=== PATIENT | female | born 1960 | race African-American/Black ===

== ENCOUNTER 2017-08-24 07:39 | Day surgery (SDC) | payer OTHER ==
[2017-08-24] MEDS ORDERED: D5 LR 1000 ML 1,000 ML IV ONE (07:50)
[2017-08-24] MEDS ORDERED: DIPRIVAN VIAL 20 ML ONE (09:27)
[2017-08-24 10:25] VITALS: BP 120/60
== END 2017-08-24 10:30 | disposition home or self-care (01) ==
LOC: SURG1 07:39
PROVIDERS: ATTEND Internal Medicine Gastroenterology
PROC: 0DBL8ZX Excision of Transverse Colon, Via Natural or Artificial Opening Endoscopic, Diagnostic (ICD-10-PCS; principal; 2017-08-24 09:00)
PROC: 0DJD8ZZ Inspection of Lower Intestinal Tract, Via Natural or Artificial Opening Endoscopic (ICD-10-PCS; principal; 2017-08-24 09:00)
DX: Z12.11 Encounter for screening for malignant neoplasm of colon (principal); K92.2 Gastrointestinal hemorrhage, unspecified; Z86.010 Personal history of colon polyps; K63.5 Polyp of colon; K64.0 First degree hemorrhoids; D12.3 Benign neoplasm of transverse colon
CPT/HCPCS: A4217; J3490; J7120

== ENCOUNTER 2018-04-09 11:24 | Inpatient (IN) ==
[2018-04-09 14:59] LABS: BASOPHILS # (AUTO) 0.1 X10^3/uL (0.0-0.1); BASOPHILS % (AUTO) 0.9 % (0.2-1.0); EOSINOPHILS # (AUTO) 0.1 x10^3/uL (0.0-0.2); EOSINOPHILS % (AUTO) 1.3 % (0.9-2.9); HEMATOCRIT 43.9 % (36.0-47.0); HEMOGLOBIN 13.7 g/dL (12.0-16.0); LYMPHOCYTES # (AUTO) 2.1 X10^3/uL (1.3-2.9); LYMPHOCYTES % (AUTO) 25.2 % (21.0-51.0); MEAN CORPUSCULAR HEMOGLOBIN 24.7 pg (27.0-34.0); MEAN CORPUSCULAR HGB CONC 31.3 g/dL (33.0-35.0); MEAN PLATELET VOLUME 8.6 fL (7.4-11.0); MONOCYTES # (AUTO) 0.7 x10^3/uL (0.3-0.8); MONOCYTES % (AUTO) 8.8 % (0.0-13.0); NEUTROPHILS # (AUTO) 5.4 x10^3/uL (2.2-4.8); NEUTROPHILS % (AUTO) 63.8 % (42.0-75.0); PLATELET COUNT 228 X10^3/uL (150.0-450.0); RED BLOOD COUNT 5.55 X10^6/uL (3.5-5.4); RED CELL DISTRIBUTION WIDTH 16.5 % (11.6-16.5); WHITE BLOOD COUNT 8.4 X10^3/uL (3.6-10.0)
[2018-04-09 15:01] VITALS: BMI 43.9
[2018-04-09 15:07] LABS: HYPOCHROMASIA SLIGHT; PLATELET MORPHOLOGY COMMENT NORMAL (NORMAL)
--- NOTE | 2018-04-09 15:10 | CT ---
HISTORY: Shortness of breath and weakness. Study: CT brain without contrast Comparison: None available. Technique: Multiple axial images of the brain were obtained from the skull base to the vertex without administra tion of IV contrast. Dose reduction techniques including Automated Exposure Control (AEC) and adjust ment of mA and kV were utilized. Findings: Age-related cortical atrophy and chronic small vessel ischemic changes. Large area of encephalomalaci a within the right MAXX territory likely representing remote infarction. No acute intraparenchymal hem orrhage or mass can be identified. No extra-axial fluid collections are seen. No alteration in the attenuation of the brain parenchyma can be identified to suggest acute or subacute ischemic change. The ventricular system is symmetric and nondilated. The extracranial structures are grossly unremark able. IMPRESSION: No acute intracranial pathology. If clinically concerned for acute ischemia/infarction MR I of the brain is more sensitive. Reported By:
--- NOTE | 2018-04-09 15:12 | RAD ---
HISTORY: Weakness, shortness of breath Study: Chest AP portable Comparison: None Findings: The heart is enlarged. No congestive heart failure is noted. No acute alveolar infiltrates or pleural effusions are identified. The bony thorax is unremarkable. IMPRESSION: Moderate cardiomegaly without congestive heart failure Lungs clear Reported By:
[2018-04-09] MEDS ORDERED: XYLOCAINE 2 % (PLAIN) ONE (15:26)
[2018-04-09] MEDS: NS 1000 ML 1,000 ML IV SCH (16:00)
--- NOTE | 2018-04-09 16:32 | RAD ---
Exam: Portable chest History: 58-year-old female. Evaluate for possible pneumothorax following attempted central line plac ement. Comparison: Previous chest radiograph performed earlier on the same date Findings: Mild cardiomegaly is seen. No significant vascular congestion. No definite pneumothorax is seen on either side. Mild compressive atelectasis is noted at the right base. Right hemidiaphragm rem ains elevated. Impression: No pneumothorax identified following attempted central line placement. Reported By:
[2018-04-09 16:41] LABS: ALANINE AMINOTRANSFERASE 35 Units/L (12-78); ALBUMIN 2.8 g/dL (3.4-5.0); ALKALINE PHOSPHATASE 84 Units/L (46-116); ASPARTATE AMINO TRANSFERASE 120 Units/L (15-37); BLOOD UREA NITROGEN 28 mg/dL (7-18); CALCIUM 9.7 mg/dL (8.5-10.1); CARBON DIOXIDE 27.6 mmol/L (21-32); CHLORIDE 106 mmol/L (98-107); COR CA(FOR HYPOALB) 10.7 mg/dL (8.5-10.1); CREATININE 1.85 mg/dL (0.55-1.02); SODIUM 144 mmol/L (136-145); TOTAL PROTEIN 7.7 g/dL (6.4-8.2); eGFR NON BLACK RACES 30 (>60)
[2018-04-09] MEDS ORDERED: POTASSIUM CHL 60 MEQ/NS 0.45% 500 ML IV PRN (18:26)
[2018-04-09] MEDS ORDERED: K-RIDER 10 MEQ/NS 100 ML 10 MEQ/100 ML BAG IV PRN (18:26)
[2018-04-09] MEDS ORDERED: POTASSIUM CHLORIDE LIQ 20 MEQ UDC PO PRN (18:26)
[2018-04-09] MEDS ORDERED: POTASSIUM CHL 40 MEQ/NS 0.45% 500 ML IV PRN (18:26)
[2018-04-09] MEDS ORDERED: K-LYTE EFFERVESCENT PO PRN (18:26)
[2018-04-09] MEDS ORDERED: NS 500 ML IV 500 ML IV ONE (18:37)
[2018-04-09 19:02] LABS: BILIRUBIN,URINE NEGATIVE (NEGATIVE); BLOOD/HEMOGLOBIN,URINE 4+ (NEGATIVE); GLUCOSE, URINE NEGATIVE (NEGATIVE); KETONES,URINE NEGATIVE (NEGATIVE); LEUKOCYTE ESTERASE ,URINE NEGATIVE (NEGATIVE); NITRITES,URINE NEGATIVE (NEGATIVE); PROTEIN,URINE 2+ (NEGATIVE); UROBILINOGEN,URINE 1+ (NORMAL)
[2018-04-09 19:07] LABS: APPEARANCE,URINE CLEAR (CLEAR); COLOR,URINE YELLOW (YELLOW)
[2018-04-09 19:34] LABS: AMORPHOUS SEDIMENT,UR 1+ /HPF (NEGATIVE); BACTERIA,URINE NEGATIVE /HPF (NEGATIVE); RBC,URINE 0-2 /HPF (NONE SEEN); SQUAMOUS EPITHELIAL CELL,UR FEW /HPF (NEGATIVE)
[2018-04-09] MEDS: SNACK - Diabetic Appropriate PO SCH (22:59)
[2018-04-10] MEDS: NS 1000 ML 1,000 ML IV SCH (05:00)
[2018-04-10 06:09] LABS: BASOPHILS # (AUTO) 0.1 X10^3/uL (0.0-0.1); BASOPHILS % (AUTO) 0.7 % (0.2-1.0); EOSINOPHILS # (AUTO) 0.2 x10^3/uL (0.0-0.2); EOSINOPHILS % (AUTO) 2.4 % (0.9-2.9); HEMATOCRIT 31.1 % (36.0-47.0); HEMOGLOBIN 9.8 g/dL (12.0-16.0); LYMPHOCYTES # (AUTO) 2.4 X10^3/uL (1.3-2.9); LYMPHOCYTES % (AUTO) 30.9 % (21.0-51.0); MEAN CORPUSCULAR HEMOGLOBIN 24.6 pg (27.0-34.0); MEAN CORPUSCULAR HGB CONC 31.5 g/dL (33.0-35.0); MEAN CORPUSCULAR VOLUME 78.1 fL (80.0-100.0); MEAN PLATELET VOLUME 8.3 fL (7.4-11.0); MONOCYTES # (AUTO) 0.8 x10^3/uL (0.3-0.8); MONOCYTES % (AUTO) 10.8 % (0.0-13.0); NEUTROPHILS # (AUTO) 4.3 x10^3/uL (2.2-4.8); NEUTROPHILS % (AUTO) 55.2 % (42.0-75.0); PLATELET COUNT 217 X10^3/uL (150.0-450.0); RED BLOOD COUNT 3.99 X10^6/uL (3.5-5.4); RED CELL DISTRIBUTION WIDTH 15.8 % (11.6-16.5); WHITE BLOOD COUNT 7.8 X10^3/uL (3.6-10.0)
[2018-04-10] MEDS ORDERED: D50W ABBOJECT SYR ONE (06:13)
[2018-04-10] MEDS: D50W ABBOJECT SYR IV PRN ×2 (06:15→11:40)
[2018-04-10 06:29] LABS: ALANINE AMINOTRANSFERASE 30 Units/L (12-78); ALBUMIN 2.4 g/dL (3.4-5.0); ALKALINE PHOSPHATASE 72 Units/L (46-116); ASPARTATE AMINO TRANSFERASE 92 Units/L (15-37); BLOOD UREA NITROGEN 27 mg/dL (7-18); CALCIUM 9.2 mg/dL (8.5-10.1); CARBON DIOXIDE 26.9 mmol/L (21-32); CHLORIDE 108 mmol/L (98-107); COR CA(FOR HYPOALB) 10.5 mg/dL (8.5-10.1); CREATININE 1.78 mg/dL (0.55-1.02); SODIUM 144 mmol/L (136-145); TOTAL PROTEIN 6.9 g/dL (6.4-8.2); eGFR NON BLACK RACES 31 (>60)
[2018-04-10 06:54] LABS: HYPOCHROMASIA SLIGHT; PLATELET MORPHOLOGY COMMENT NORMAL (NORMAL)
[2018-04-10] MEDS ORDERED: DIPRIVAN VIAL ONE (09:32)
[2018-04-10] MEDS ORDERED: NORMODYNE INJ 20 MG VIAL IVP PRN (09:52)
--- NOTE | 2018-04-10 11:20 | DR.UPDATE ---
H&P Update History and Physical Update: WAS SEEN IN THE OFFICE TODAY. PATIENT TO BE ADMITTED TO THE HOSPITAL FOR FURTHER TREATMENT AND EVALUATION OF A POSSIBLE CVA. A H&P WAS COMPLETED PRIOR TO ADMISSION. PATIENT HAS BEEN SEEN AND EXAMINED WITH NO CHANGES NOTED TO H&P. Changes noted: NO Yes with the following:
[2018-04-10] MEDS ORDERED: D5W 1000 ML IV 1,000 ML IV SCH (12:00)
[2018-04-10] MEDS: D5W 1000 ML IV 1,000 ML IV SCH (14:01)
--- NOTE | 2018-04-10 18:23 | MRI ---
HISTORY: Weakness. Altered mental status. Slurred speech. Suspected right-sided CVA. Study: MR brain without contrast Comparison: Head CT dated 04/09/2018. Technique: Multiplanar multi-sequence MRI of the brain was obtained without contrast utilizing a [facility] protocol. Findings: There is restricted diffusion within the mesial aspect of the right frontal lobe high conve xity with associated dropout of signal on ADC map and increased T2/FLAIR signal compatible with an ac [place] ischemic event. There is loss of sulcation with mass effect along the superior aspect of the righ t lateral ventricle which is slightly smaller than the left. There is no midline shift or evidence of herniation. There is no associated hemorrhage. Scattered and confluent areas of increased T2/FLAIR s ignal are noted throughout the periventricular, deep and subcortical white matter regions bilaterally , as well as, involving the brainstem. No extra-axial fluid collections are observed. IMPRESSION: Acute ischemic event involving the MAXX territory on the right. There is mass effect on the underlying right lateral ventricle without midline shift or herniation. There is no associated hemorrhage. Chronic appearing white matter changes likely reflecting sequelae of small vessel disease. Reported By:
[2018-04-10] MEDS: SNACK - Diabetic Appropriate PO SCH (21:36)
[2018-04-11 05:46] LABS: BASOPHILS # (AUTO) 0.1 X10^3/uL (0.0-0.1); BASOPHILS % (AUTO) 0.9 % (0.2-1.0); EOSINOPHILS # (AUTO) 0.3 x10^3/uL (0.0-0.2); EOSINOPHILS % (AUTO) 3.9 % (0.9-2.9); HEMATOCRIT 34.1 % (36.0-47.0); HEMOGLOBIN 10.7 g/dL (12.0-16.0); LYMPHOCYTES # (AUTO) 2.2 X10^3/uL (1.3-2.9); LYMPHOCYTES % (AUTO) 28.2 % (21.0-51.0); MEAN CORPUSCULAR HEMOGLOBIN 24.5 pg (27.0-34.0); MEAN CORPUSCULAR HGB CONC 31.5 g/dL (33.0-35.0); MEAN CORPUSCULAR VOLUME 77.7 fL (80.0-100.0); MEAN PLATELET VOLUME 8.2 fL (7.4-11.0); MONOCYTES # (AUTO) 0.9 x10^3/uL (0.3-0.8); MONOCYTES % (AUTO) 11.6 % (0.0-13.0); NEUTROPHILS # (AUTO) 4.3 x10^3/uL (2.2-4.8); NEUTROPHILS % (AUTO) 55.4 % (42.0-75.0); PLATELET COUNT 189 X10^3/uL (150.0-450.0); RED BLOOD COUNT 4.39 X10^6/uL (3.5-5.4); RED CELL DISTRIBUTION WIDTH 15.9 % (11.6-16.5); WHITE BLOOD COUNT 7.8 X10^3/uL (3.6-10.0)
[2018-04-11 05:52] LABS: ALANINE AMINOTRANSFERASE 28 Units/L (12-78); ALBUMIN 2.4 g/dL (3.4-5.0); ALKALINE PHOSPHATASE 74 Units/L (46-116); ASPARTATE AMINO TRANSFERASE 65 Units/L (15-37); BLOOD UREA NITROGEN 20 mg/dL (7-18); CALCIUM 9.5 mg/dL (8.5-10.1); CARBON DIOXIDE 27.7 mmol/L (21-32); CHLORIDE 104 mmol/L (98-107); COR CA(FOR HYPOALB) 10.8 mg/dL (8.5-10.1); SODIUM 139 mmol/L (136-145); TOTAL PROTEIN 7.2 g/dL (6.4-8.2); eGFR NON BLACK RACES 41 (>60)
[2018-04-11 07:15] LABS: PLATELET MORPHOLOGY COMMENT NORMAL (NORMAL)
[2018-04-11] MEDS ORDERED: PATIENT'S HOME MEDICATION (Ferrous Sulfate [Ferrous Sulfate] 325 MG) PO SCH (09:45)
[2018-04-11] MEDS: ALDACTONE TAB 25 MG PO SCH (12:42)
[2018-04-11] MEDS: PLAVIX PO SCH (12:43)
[2018-04-11] MEDS: CATAPRES-TTS-2 TD SCH (12:43)
[2018-04-11] MEDS: HYDROCHLOROTHIAZIDE 25 MG TAB PO SCH (12:43)
[2018-04-11] MEDS: HEMOCYTE-PLUS PO SCH ×2 (12:43→20:52)
[2018-04-11] MEDS: D5W 1000 ML IV 1,000 ML IV SCH ×2 (12:44→20:52)
[2018-04-11] MEDS: COREG TAB 25 MG PO SCH ×2 (12:47→20:52)
--- NOTE | 2018-04-11 16:18 | VAS ---
HISTORY: Concern for carotid artery stenosis. Technique: Multiple macedo scale and color flow Doppler images of the right and left carotid arterial s ystem were obtained. The vertebral arterial system was evaluated as well. Findings: Nonocclusive color flow Doppler is seen throughout the right and left carotid arterial system. No hem odynamically significant carotid arterial stenosis is seen based on velocity criteria. There is mild bilateral carotid intimal thickening but without evidence for high-grade stenosis (>70%) or occlusion of the carotid arteries. The right and left vertebral artery demonstrate antegrade flow. IMPRESSION: Mild bilateral carotid intimal thickening but without evidence for high-grade stenosis or occlusion o f the carotid arteries, based on Doppler velocity criteria. Appropriate, antegrade, vertebral arterial flow. Peak right ICA velocity: 87 centimeter/seconds. Peak right CCA velocity: 58 centimeter/second. Peak left ICA velocity: 55 centimeter/seconds. Peak left CCA velocity: 53 centimeters/second. Right ICA to CCA ratio: 1.5. Left ICA to CCA ratio: 1.0. Reported By:
--- NOTE | 2018-04-11 16:38 | PCM.PROG ---
Progress Note - Progress Note for Day of Date: 04/10/18 - Subjective Subjective: WAS ADMITTED FOR A SUSPECTED RIGHT SIDED CVA. TODAY, SHE IS ALERT, LYING IN BED ON MORNING ROUNDS. SHE IS NOTED WITH DELAYED, SLURRED SPEECH AND HAS DIFFICULTY ANSWERING QUESTIONS. ON EXAMINATION, HEART IS REGULAR IN RATE AND RHYTHM. BILATERAL LUNGS ARE CLEAR TO AUSCULTATION. ABDOMEN IS ROUND , SOFT, AND NON-TENDER WITH NORMAL BOWEL SOUNDS NOTED IN ALL QUADRANTS. SHE IS NOTED WITH SEVERE LEFT SIDED WEAKNESS. HER VITALS TODAY ARE 97.4-59-18-96%-153/ 81. LABS WERE OBTAINED. ABNORMAL LAB VALUES INCLUDE THE FOLLOWING: HGB 9.8, HCT 31.1, CHLORIDE 108, BUN 27, CREATININE 1.78, AST 92, ALBUMIN 2.4. THROUGHOUT THE NIGHT, HER BLOOD GLUCOSE HAS BEEN IN THE 60s-70s. SHE IS DIABETIC AND NPO AT THIS TIME. ON ARRIVAL, A BRAIN CT WAS OBTAINED WHICH REVEALED Age-related cortical atrophy and chronic small vessel ischemic changes. Large area of encephalomalacia within the right MAXX territory likely representing remote infarction, otherwise, no acute intracranial pathology. TODAY, WE WILL OBTAIN A BRAIN MRI. WE WILL ALSO START HER ON THE LABETALOL PROTOCOL FOR BLOOD PRESSURE CONTROL AND D5W. OTHERWISE, WE WILL FOLLOW UP WITH AM LABS AND CONTINUE TO MONITOR PATIENT. - Past Medical Family Social History Past Med/Fam/Surg Hx: No changes since H&P Allergies: Allergies No Known Drug Allergies Allergy (Verified 08/24/17 07:55) - Review of Systems ROS: No change since H&P - Vital Signs and I&O's Vital Signs: Temperature 99.6 F Pulse Rate [Bilateral Brachial 86 ] Respiratory Rate 18 Blood Pressure [Left Arm] 167/98 Blood Pressure 120/60 O2 Sat by Pulse Oximetry 99 Intake and Output: Intake & Output 04/09/18 04/10/18 04/11/18 04/12/18 11:59 11:59 11:59 11:59 Intake Total 740 / 740 910 / 910 Output Total 550 / 550 1525 / 1525 Balance 190 / 190 -615 / -615 - Physical Exam Oriented: Unable to test Eyes: Normal Ear: Normal Nose: Normal Throat: Normal Respiratory: Normal Cardiovascular: Normal. negative: S3, S4, Murmur : Normal Auscultation: Bowel Sounds: Normal Palpation: Normal Tenderness: Normal Skin: Normal Musculoskeletal: Left, Arm, Leg, Motor Deficit, Sensory Deficit Psychiatric: Normal Affect: Normal Speech Pattern: Delayed, Slurred - Laboratory and Diagnostics Result Diagrams: 04/11/18 05:16 04/11/18 05:16 Labs: Laboratory WBC 7.8 X10^3/uL (3.6-10.0) 04/11/18 05:16 RBC 4.39 X10^6/uL (3.5-5.4) 04/11/18 05:16 Hgb 10.7 g/dL (12.0-16.0) L 04/11/18 05:16 Hct 34.1 % (36.0-47.0) L 04/11/18 05:16 MCV 77.7 fL (80.0-100.0) L 04/11/18 05:16 MCH 24.5 pg (27.0-34.0) L 04/11/18 05:16 MCHC 31.5 g/dL (33.0-35.0) L 04/11/18 05:16 RDW 15.9 % (11.6-16.5) 04/11/18 05:16 Plt Count 189 X10^3/uL (150.0-450.0) 04/11/18 05:16 Plt Count Comment Adequate (ADEQUATE) 04/11/18 05:16 MPV 8.2 fL (7.4-11.0) 04/11/18 05:16 Neut % (Auto) 55.4 % (42.0-75.0) 04/11/18 05:16 Lymph % (Auto) 28.2 % (21.0-51.0) 04/11/18 05:16 [place] % (Auto) 11.6 % (0.0-13.0) 04/11/18 05:16 Eos % (Auto) 3.9 % (0.9-2.9) H 04/11/18 05:16 Baso % (Auto) 0.9 % (0.2-1.0) 04/11/18 05:16 Neut # (Auto) 4.3 x10^3/uL (2.2-4.8) 04/11/18 05:16 Lymph # (Auto) 2.2 X10^3/uL (1.3-2.9) 04/11/18 05:16 [place] # (Auto) 0.9 x10^3/uL (0.3-0.8) H 04/11/18 05:16 Eos # (Auto) 0.3 x10^3/uL (0.0-0.2) H 04/11/18 05:16 Baso # (Auto) 0.1 X10^3/uL (0.0-0.1) 04/11/18 05:16 Absolute Nucleated RBC 0.0 /100WBC 04/11/18 05:16 Plt Morphology Comment Normal (NORMAL) 04/11/18 05:16 RBC Morphology Normal (NORMAL) 04/11/18 05:16 Hypochromasia Slight A 04/10/18 05:37 Sodium 139 mmol/L (136-145) 04/11/18 05:16 Corrected Sodium TNP 04/11/18 05:16 Potassium 3.5 mmol/L (3.5-5.1) 04/11/18 05:16 Chloride 104 mmol/L (98-107) 04/11/18 05:16 Carbon Dioxide 27.7 mmol/L (21-32) 04/11/18 05:16 BUN 20 mg/dL (7-18) H 04/11/18 05:16 Creatinine 1.40 mg/dL (0.55-1.02) H 04/11/18 05:16 Est GFR (MDRD) Af Amer 49 (>60) L 04/11/18 05:16 Est GFR (MDRD) Non-Af 41 (>60) L 04/11/18 05:16 Glucose 108 mg/dL (65-99) H 04/11/18 05:16 POC Glucose (mg/dL) 135 mg/dL (65-99) H 04/11/18 16:19 Calcium 9.5 mg/dL (8.5-10.1) 04/11/18 05:16 Corrected Calcium 10.8 mg/dL (8.5-10.1) H 04/11/18 05:16 Magnesium 1.9 mg/dL (1.7-2.9) 04/09/18 14:31 Total Bilirubin 0.30 mg/dL (0.2-1.0) 04/11/18 05:16 AST 65 Units/L (15-37) H 04/11/18 05:16 ALT 28 Units/L (12-78) 04/11/18 05:16 Alkaline Phosphatase 74 Units/L (46-116) 04/11/18 05:16 Total Protein 7.2 g/dL (6.4-8.2) 04/11/18 05:16 Albumin 2.4 g/dL (3.4-5.0) L 04/11/18 05:16 Globulin 4.8 g/dL (2.5-4.5) H 04/11/18 05:16 Albumin/Globulin Ratio 0.5 Ratio (1.1-2.1) L 04/11/18 05:16 Specimen Type Clean catch urine 04/09/18 18:17 Urine Color Yellow (YELLOW) 04/09/18 18:17 Urine Appearance Clear (CLEAR) 04/09/18 18:17 Urine pH 5.0 (5.0 - 8.0) 04/09/18 18:17 Ur Specific [place] 1.020 (1.000-1.030) 04/09/18 18:17 Urine Protein 2+ (NEGATIVE) 04/09/18 18:17 Urine Glucose (UA) Negative (NEGATIVE) 04/09/18 18:17 Urine Ketones Negative (NEGATIVE) 04/09/18 18:17 Urine Occult Blood 4+ (NEGATIVE) 04/09/18 18:17 Urine Nitrite Negative (NEGATIVE) 04/09/18 18:17 Urine Bilirubin Negative (NEGATIVE) 04/09/18 18:17 Urine Urobilinogen 1+ (NORMAL) 04/09/18 18:17 Ur Leukocyte Esterase Negative (NEGATIVE) 04/09/18 18:17 Urine RBC 0-2 /HPF (NONE SEEN) 04/09/18 18:17 Urine WBC 0-2 /HPF (NONE SEEN) 04/09/18 18:17 Ur Squamous Epith Cells Few /HPF (NEGATIVE) 04/09/18 18:17 Amorphous Sediment 1+ /HPF (NEGATIVE) 04/09/18 18:17 Urine Bacteria Negative /HPF (NEGATIVE) 04/09/18 18:17 Ur Culture Indicated? No/not indicated 04/09/18 18:17 - Plan (1) Suspected cerebrovascular accident (CVA) Status: Acute Plan: BRAIN MRI TODAY, SPEECH THERAPY CONSULT, CONTINUE TO MONITOR (2) Left-sided weakness Status: Acute Plan: OBTAIN BRAIN MRI, CONTINUE TO MONITOR
--- NOTE | 2018-04-11 17:12 | PCM.PROG ---
Progress Note - Progress Note for Day of Date: 04/11/18 - Subjective Subjective: WAS ADMITTED FOR A SUSPECTED RIGHT SIDED CVA. TODAY, SHE IS ALERT, LYING IN BED ON MORNING ROUNDS. SHE CONTINUES WITH DELAYED, SLURRED SPEECH. ON EXAMINATION, HEART IS REGULAR IN RATE AND RHYTHM. BILATERAL LUNGS ARE CLEAR TO AUSCULTATION. ABDOMEN IS ROUND, SOFT, AND NON-TENDER WITH NORMAL BOWEL SOUNDS NOTED IN ALL QUADRANTS. SHE IS NOTED WITH SEVERE LEFT SIDED WEAKNESS. HER VITALS TODAY ARE 97.3-80-21-100%-171/89. LABS WERE OBTAINED. ABNORMAL LAB VALUES INCLUDE THE FOLLOWING: HGB 10.7, HCT 34.1, BUN 20, CREATININE 1.40, GLUCOSE 108, AST 65, ALBUMIN 2.4. ON ARRIVAL, A BRAIN MRI WAS OBTAINED YESTERDAY AND REVEALED: Acute ischemic event involving the MAXX territory on the right. There is mass effect on the underlying right lateral ventricle without midline shift or herniation. There is no associated hemorrhage. Chronic appearing white matter changes likely reflecting sequelae of small vessel disease. PATIENT WILL REQUIRE ADDITIONAL PHYSICAL THERAPY AFTER DISCHARGE FROM THE HOSPITAL. WE WILL DISCUSS OPTIONS WITH CASE MANAGEMENT. SPEECH THERAPY REPORTED THAT PATIENT WAS SAFE TO EAT A PUREED DIET WITH NECTAR THICKENED LIQUIDS WELL TAKE HER PILLS CRUSHED. TODAY, WE WILL OBTAIN A CAROTID DOPPLER, EKG, AND ECHOCARDIOGRAM. WE WILL RESTART HER PLAVIX AND OTHER HOME MEDICATIONS. WE WILL ALSO START A CLONIDINE 0.2MG TD PATCH. OTHERWISE, WE WILL FOLLOW UP WITH AM LABS AND CONTINUE TO MONITOR PATIENT. - Past Medical Family Social History Past Med/Fam/Surg Hx: No changes since H&P Allergies: Allergies No Known Drug Allergies Allergy (Verified 08/24/17 07:55) - Review of Systems ROS: No change since H&P - Vital Signs and I&O's Vital Signs: Temperature 99.6 F Pulse Rate [Bilateral Brachial 75 ] Respiratory Rate 18 Blood Pressure [Left Arm] 153/84 Blood Pressure 120/60 O2 Sat by Pulse Oximetry 100 Intake and Output: Intake & Output 04/09/18 04/10/18 04/11/18 04/12/18 11:59 11:59 11:59 11:59 Intake Total 740 / 740 910 / 910 330 / 330 Output Total 550 / 550 1525 / 1525 525 / 525 Balance 190 / 190 -615 / -615 -195 / -195 - Physical Exam Oriented: Unable to test Eyes: Normal Ear: Normal Nose: Normal Throat: Normal Respiratory: Normal Cardiovascular: Normal. negative: S3, S4, Murmur : Normal Auscultation: Bowel Sounds: Normal Palpation: Normal Tenderness: Normal Skin: Normal Musculoskeletal: Left, Arm, Leg, Motor Deficit, Sensory Deficit Psychiatric: Normal Affect: Normal Speech Pattern: Delayed, Slurred - Laboratory and Diagnostics Result Diagrams: 04/11/18 05:16 04/11/18 05:16 Labs: Laboratory WBC 7.8 X10^3/uL (3.6-10.0) 04/11/18 05:16 RBC 4.39 X10^6/uL (3.5-5.4) 04/11/18 05:16 Hgb 10.7 g/dL (12.0-16.0) L 04/11/18 05:16 Hct 34.1 % (36.0-47.0) L 04/11/18 05:16 MCV 77.7 fL (80.0-100.0) L 04/11/18 05:16 MCH 24.5 pg (27.0-34.0) L 04/11/18 05:16 MCHC 31.5 g/dL (33.0-35.0) L 04/11/18 05:16 RDW 15.9 % (11.6-16.5) 04/11/18 05:16 Plt Count 189 X10^3/uL (150.0-450.0) 04/11/18 05:16 Plt Count Comment Adequate (ADEQUATE) 04/11/18 05:16 MPV 8.2 fL (7.4-11.0) 04/11/18 05:16 Neut % (Auto) 55.4 % (42.0-75.0) 04/11/18 05:16 Lymph % (Auto) 28.2 % (21.0-51.0) 04/11/18 05:16 [place] % (Auto) 11.6 % (0.0-13.0) 04/11/18 05:16 Eos % (Auto) 3.9 % (0.9-2.9) H 04/11/18 05:16 Baso % (Auto) 0.9 % (0.2-1.0) 04/11/18 05:16 Neut # (Auto) 4.3 x10^3/uL (2.2-4.8) 04/11/18 05:16 Lymph # (Auto) 2.2 X10^3/uL (1.3-2.9) 04/11/18 05:16 [place] # (Auto) 0.9 x10^3/uL (0.3-0.8) H 04/11/18 05:16 Eos # (Auto) 0.3 x10^3/uL (0.0-0.2) H 04/11/18 05:16 Baso # (Auto) 0.1 X10^3/uL (0.0-0.1) 04/11/18 05:16 Absolute Nucleated RBC 0.0 /100WBC 04/11/18 05:16 Plt Morphology Comment Normal (NORMAL) 04/11/18 05:16 RBC Morphology Normal (NORMAL) 04/11/18 05:16 Hypochromasia Slight A 04/10/18 05:37 Sodium 139 mmol/L (136-145) 04/11/18 05:16 Corrected Sodium TNP 04/11/18 05:16 Potassium 3.5 mmol/L (3.5-5.1) 04/11/18 05:16 Chloride 104 mmol/L (98-107) 04/11/18 05:16 Carbon Dioxide 27.7 mmol/L (21-32) 04/11/18 05:16 BUN 20 mg/dL (7-18) H 04/11/18 05:16 Creatinine 1.40 mg/dL (0.55-1.02) H 04/11/18 05:16 Est GFR (MDRD) Af Amer 49 (>60) L 04/11/18 05:16 Est GFR (MDRD) Non-Af 41 (>60) L 04/11/18 05:16 Glucose 108 mg/dL (65-99) H 04/11/18 05:16 POC Glucose (mg/dL) 135 mg/dL (65-99) H 04/11/18 16:19 Calcium 9.5 mg/dL (8.5-10.1) 04/11/18 05:16 Corrected Calcium 10.8 mg/dL (8.5-10.1) H 04/11/18 05:16 Magnesium 1.9 mg/dL (1.7-2.9) 04/09/18 14:31 Total Bilirubin 0.30 mg/dL (0.2-1.0) 04/11/18 05:16 AST 65 Units/L (15-37) H 04/11/18 05:16 ALT 28 Units/L (12-78) 04/11/18 05:16 Alkaline Phosphatase 74 Units/L (46-116) 04/11/18 05:16 Total Protein 7.2 g/dL (6.4-8.2) 04/11/18 05:16 Albumin 2.4 g/dL (3.4-5.0) L 04/11/18 05:16 Globulin 4.8 g/dL (2.5-4.5) H 04/11/18 05:16 Albumin/Globulin Ratio 0.5 Ratio (1.1-2.1) L 04/11/18 05:16 Specimen Type Clean catch urine 04/09/18 18:17 Urine Color Yellow (YELLOW) 04/09/18 18:17 Urine Appearance Clear (CLEAR) 04/09/18 18:17 Urine pH 5.0 (5.0 - 8.0) 04/09/18 18:17 Ur Specific [place] 1.020 (1.000-1.030) 04/09/18 18:17 Urine Protein 2+ (NEGATIVE) 04/09/18 18:17 Urine Glucose (UA) Negative (NEGATIVE) 04/09/18 18:17 Urine Ketones Negative (NEGATIVE) 04/09/18 18:17 Urine Occult Blood 4+ (NEGATIVE) 04/09/18 18:17 Urine Nitrite Negative (NEGATIVE) 04/09/18 18:17 Urine Bilirubin Negative (NEGATIVE) 04/09/18 18:17 Urine Urobilinogen 1+ (NORMAL) 04/09/18 18:17 Ur Leukocyte Esterase Negative (NEGATIVE) 04/09/18 18:17 Urine RBC 0-2 /HPF (NONE SEEN) 04/09/18 18:17 Urine WBC 0-2 /HPF (NONE SEEN) 04/09/18 18:17 Ur Squamous Epith Cells Few /HPF (NEGATIVE) 04/09/18 18:17 Amorphous Sediment 1+ /HPF (NEGATIVE) 04/09/18 18:17 Urine Bacteria Negative /HPF (NEGATIVE) 04/09/18 18:17 Ur Culture Indicated? No/not indicated 04/09/18 18:17 - Plan (1) Acute CVA (cerebrovascular accident) Status: Acute Plan: PLAVIX 75MG PO DAILY, PHYSICAL THERAPY, OCCUPATIONAL THERAPY, SPEECH THERAPY, OBTAIN ECHO, CAROTID DOPPLER, AND EKG, SUPPLEMENTAL OXYGEN, CONTINUE TO MONITOR. (2) Left-sided weakness Status: Acute Plan: OBTAIN BRAIN MRI, CONTINUE TO MONITOR (3) Hypertension Status: Acute Qualifiers: Hypertension type: essential hypertension Qualified Code(s): I10 - Essential (primary) hypertension Plan: CONTINUE NORVASC, CONTINUE COREG, CATAPRES PATCH WEEKLY, LABETALOL PROTOCOL, CONTINUE DIOVAN, CONTINUE TO MONITOR (4) Anemia Status: Acute Qualifiers: Anemia type: iron deficiency Iron deficiency anemia type: unspecified iron deficiency Qualified Code(s): D50.9 - Iron deficiency anemia, unspecified Plan: CONTINUE HEMOCYTE, CONTINUE TO MONITOR (5) Congestive heart failure Status: Acute Qualifiers: Heart failure type: unspecified Heart failure chronicity: chronic Qualified Code(s): I50.9 - Heart failure, unspecified Plan: CONTINUE DIOVAN, CONTINUE ALDACTONE, CONTINUE COREG, CONTINUE TO MONITOR
[2018-04-11] MEDS ORDERED: HEPARIN SODIUM INJ 5000 UNITS IVP ONE (17:15)
[2018-04-11] MEDS ORDERED: HEPARIN SODIUM INJ 5000 UNITS ONE (17:15)
[2018-04-11] MEDS: HEPARIN SODIUM IN D5W 25,000 UNITS/500 ML BAG IV PRN (17:20)
[2018-04-11] MEDS: SNACK - Diabetic Appropriate PO SCH (20:14)
[2018-04-11] MEDS: NORVASC TAB 10 MG PO SCH (20:53)
[2018-04-11] MEDS: DIOVAN TAB 160 MG PO SCH (20:53)
[2018-04-11] MEDS ORDERED: VALSARTAN 320 MG PO SCH (21:00)
[2018-04-12 06:20] LABS: BASOPHILS # (AUTO) 0.1 X10^3/uL (0.0-0.1); BASOPHILS % (AUTO) 1.1 % (0.2-1.0); EOSINOPHILS # (AUTO) 0.3 x10^3/uL (0.0-0.2); EOSINOPHILS % (AUTO) 3.8 % (0.9-2.9); HEMATOCRIT 34.2 % (36.0-47.0); HEMOGLOBIN 10.9 g/dL (12.0-16.0); LYMPHOCYTES # (AUTO) 2.3 X10^3/uL (1.3-2.9); LYMPHOCYTES % (AUTO) 25.9 % (21.0-51.0); MEAN CORPUSCULAR HEMOGLOBIN 24.7 pg (27.0-34.0); MEAN CORPUSCULAR HGB CONC 31.8 g/dL (33.0-35.0); MEAN CORPUSCULAR VOLUME 77.5 fL (80.0-100.0); MEAN PLATELET VOLUME 8.2 fL (7.4-11.0); MONOCYTES # (AUTO) 0.9 x10^3/uL (0.3-0.8); NEUTROPHILS # (AUTO) 5.3 x10^3/uL (2.2-4.8); NEUTROPHILS % (AUTO) 59.2 % (42.0-75.0); PLATELET COUNT 214 X10^3/uL (150.0-450.0); RED BLOOD COUNT 4.41 X10^6/uL (3.5-5.4); RED CELL DISTRIBUTION WIDTH 15.9 % (11.6-16.5)
[2018-04-12 06:45] LABS: ALBUMIN 2.6 g/dL (3.4-5.0); CALCIUM 9.9 mg/dL (8.5-10.1); CARBON DIOXIDE 26.7 mmol/L (21-32); CREATININE 1.32 mg/dL (0.55-1.02); TOTAL PROTEIN 7.8 g/dL (6.4-8.2)
[2018-04-12 06:50] LABS: PLATELET MORPHOLOGY COMMENT NORMAL (NORMAL)
[2018-04-12] MEDS: ALDACTONE TAB 25 MG PO SCH (08:28)
[2018-04-12] MEDS: HYDROCHLOROTHIAZIDE 25 MG TAB PO SCH (08:28)
[2018-04-12] MEDS: COREG TAB 25 MG PO SCH ×2 (08:28→21:45)
[2018-04-12] MEDS: HEMOCYTE-PLUS PO SCH ×2 (08:28→21:45)
[2018-04-12] MEDS: PLAVIX PO SCH (08:29)
[2018-04-12] MEDS: HumuLIN R SUBCUT PRN ×2 (11:31→16:19)
[2018-04-12] MEDS: D5W 1000 ML IV 1,000 ML IV SCH (13:16)
[2018-04-12] MEDS: HEPARIN SODIUM IN D5W 25,000 UNITS/500 ML BAG IV PRN ×2 (13:49→22:19)
--- NOTE | 2018-04-12 20:34 | PCM.PROG ---
Progress Note - Progress Note for Day of Date: 04/12/18 - Subjective Subjective: WAS ADMITTED FOR A SUSPECTED RIGHT SIDED CVA. TODAY, SHE IS LYING IN BED WITH EYES CLOSED ON MORNING ROUNDS. SHE OPENS EYES TO VERBAL STIMULI. TODAY, SHE DOES NOT RESPOND VERBALLY. ON EXAMINATION, HEART IS REGULAR IN RATE AND RHYTHM. BILATERAL LUNGS ARE CLEAR TO AUSCULTATION. ABDOMEN IS ROUND , SOFT, AND NON-TENDER WITH NORMAL BOWEL SOUNDS NOTED IN ALL QUADRANTS. SHE DOES NOT RESPOND TO VERBAL CUES AND DOES NOT FOLLOW COMMANDS UPON EXAMINATION. HER VITALS TODAY ARE 98.1-70-17-100%-130/64. LABS WERE OBTAINED. ABNORMAL LAB VALUES INCLUDE THE FOLLOWING: HGB 10.9, HCT 34.2, SODIUM 133, CHLORIDE 97, BUN 19, CREATININE 1.32, GLUCOSE 188, ALBUMIN 2.6. ON ARRIVAL, A BRAIN MRI WAS OBTAINED YESTERDAY AND REVEALED: Acute ischemic event involving the MAXX territory on the right. There is mass effect on the underlying right lateral ventricle without midline shift or herniation. There is no associated hemorrhage. Chronic appearing white matter changes likely reflecting sequelae of small vessel disease. AN ECHOCARDIOGRAM WAS OBTAINED YESTERDAY AND REVEALED A 4.4X3.2 CM LEFT ATRIAL CLOT BEHIND THE MITRAL VALVE. WE STARTED HER ON A HEPARIN DRIP YESTERDAY AFTERNOON. STAFF REPORTS THAT THEY ARE UNABLE TO GET PATIENT TO TAKE HER MEDICATIONS TODAY. TODAY, WE WILL CONTINUE WITH HEPARIN DRIP AND CURRENT PLAN OF CARE. OTHERWISE, WE WILL FOLLOW UP WITH AM LABS AND CONTINUE TO MONITOR PATIENT. - Past Medical Family Social History Past Med/Fam/Surg Hx: No changes since H&P Allergies: Allergies No Known Drug Allergies Allergy (Verified 08/24/17 07:55) - Review of Systems ROS: No change since H&P - Vital Signs and I&O's Vital Signs: Temperature 98.1 F Pulse Rate [Bilateral Brachial 68 ] Respiratory Rate 23 Blood Pressure [Left Arm] 165/77 Blood Pressure 120/60 O2 Sat by Pulse Oximetry 100 Intake and Output: Intake & Output 04/10/18 04/11/18 04/12/18 04/13/18 11:59 11:59 11:59 11:59 Intake Total 740 / 740 910 / 910 1541 / 1541 758 / 758 Output Total 550 / 550 1525 / 1525 1225 / 1225 500 / 500 Balance 190 / 190 -615 / -615 316 / 316 258 / 258 - Physical Exam Oriented: Unable to test Eyes: Normal Ear: Normal Nose: Normal Throat: Normal Respiratory: Normal Cardiovascular: Normal. negative: S3, S4, Murmur : Normal Auscultation: Bowel Sounds: Normal Palpation: Normal Tenderness: Normal Skin: Normal Musculoskeletal: Left, Arm, Leg, Motor Deficit, Sensory Deficit Psychiatric: Normal Affect: Normal Speech Pattern: Aphasic - Laboratory and Diagnostics Result Diagrams: 04/12/18 05:43 04/12/18 05:43 Labs: Laboratory WBC 9.0 X10^3/uL (3.6-10.0) 04/12/18 05:43 RBC 4.41 X10^6/uL (3.5-5.4) 04/12/18 05:43 Hgb 10.9 g/dL (12.0-16.0) L 04/12/18 05:43 Hct 34.2 % (36.0-47.0) L 04/12/18 05:43 MCV 77.5 fL (80.0-100.0) L 04/12/18 05:43 MCH 24.7 pg (27.0-34.0) L 04/12/18 05:43 MCHC 31.8 g/dL (33.0-35.0) L 04/12/18 05:43 RDW 15.9 % (11.6-16.5) 04/12/18 05:43 Plt Count 214 X10^3/uL (150.0-450.0) 04/12/18 05:43 Plt Count Comment Adequate (ADEQUATE) 04/12/18 05:43 MPV 8.2 fL (7.4-11.0) 04/12/18 05:43 Neut % (Auto) 59.2 % (42.0-75.0) 04/12/18 05:43 Lymph % (Auto) 25.9 % (21.0-51.0) 04/12/18 05:43 [place] % (Auto) 10.0 % (0.0-13.0) 04/12/18 05:43 Eos % (Auto) 3.8 % (0.9-2.9) H 04/12/18 05:43 Baso % (Auto) 1.1 % (0.2-1.0) H 04/12/18 05:43 Neut # (Auto) 5.3 x10^3/uL (2.2-4.8) H 04/12/18 05:43 Lymph # (Auto) 2.3 X10^3/uL (1.3-2.9) 04/12/18 05:43 [place] # (Auto) 0.9 x10^3/uL (0.3-0.8) H 04/12/18 05:43 Eos # (Auto) 0.3 x10^3/uL (0.0-0.2) H 04/12/18 05:43 Baso # (Auto) 0.1 X10^3/uL (0.0-0.1) 04/12/18 05:43 Absolute Nucleated RBC 0.1 /100WBC 04/12/18 05:43 Plt Morphology Comment Normal (NORMAL) 04/12/18 05:43 RBC Morphology Normal (NORMAL) 04/12/18 05:43 Hypochromasia Slight A 04/10/18 05:37 APTT 66.2 SECONDS (22.9-36.5) H 04/12/18 14:08 PTT Comment - 04/12/18 14:08 Sodium 133 mmol/L (136-145) L 04/12/18 05:43 Corrected Sodium 135 mmol/L (136-145) L 04/12/18 05:43 Potassium 4.1 mmol/L (3.5-5.1) 04/12/18 05:43 Chloride 97 mmol/L (98-107) L 04/12/18 05:43 Carbon Dioxide 26.7 mmol/L (21-32) 04/12/18 05:43 BUN 19 mg/dL (7-18) H 04/12/18 05:43 Creatinine 1.32 mg/dL (0.55-1.02) H 04/12/18 05:43 Est GFR (MDRD) Af Amer 53 (>60) L 04/12/18 05:43 Est GFR (MDRD) Non-Af 44 (>60) L 04/12/18 05:43 Glucose 188 mg/dL (65-99) H 04/12/18 05:43 POC Glucose (mg/dL) 185 mg/dL (65-99) H 04/12/18 16:11 Calcium 9.9 mg/dL (8.5-10.1) 04/12/18 05:43 Corrected Calcium 11.0 mg/dL (8.5-10.1) H 04/12/18 05:43 Magnesium 1.9 mg/dL (1.7-2.9) 04/09/18 14:31 Total Bilirubin 0.50 mg/dL (0.2-1.0) 04/12/18 05:43 AST 61 Units/L (15-37) H 04/12/18 05:43 ALT 28 Units/L (12-78) 04/12/18 05:43 Alkaline Phosphatase 78 Units/L (46-116) 04/12/18 05:43 Total Protein 7.8 g/dL (6.4-8.2) 04/12/18 05:43 Albumin 2.6 g/dL (3.4-5.0) L 04/12/18 05:43 Globulin 5.2 g/dL (2.5-4.5) H 04/12/18 05:43 Albumin/Globulin Ratio 0.5 Ratio (1.1-2.1) L 04/12/18 05:43 Specimen Type Clean catch urine 04/09/18 18:17 Urine Color Yellow (YELLOW) 04/09/18 18:17 Urine Appearance Clear (CLEAR) 04/09/18 18:17 Urine pH 5.0 (5.0 - 8.0) 04/09/18 18:17 Ur Specific [place] 1.020 (1.000-1.030) 04/09/18 18:17 Urine Protein 2+ (NEGATIVE) 04/09/18 18:17 Urine Glucose (UA) Negative (NEGATIVE) 04/09/18 18:17 Urine Ketones Negative (NEGATIVE) 04/09/18 18:17 Urine Occult Blood 4+ (NEGATIVE) 04/09/18 18:17 Urine Nitrite Negative (NEGATIVE) 04/09/18 18:17 Urine Bilirubin Negative (NEGATIVE) 04/09/18 18:17 Urine Urobilinogen 1+ (NORMAL) 04/09/18 18:17 Ur Leukocyte Esterase Negative (NEGATIVE) 04/09/18 18:17 Urine RBC 0-2 /HPF (NONE SEEN) 04/09/18 18:17 Urine WBC 0-2 /HPF (NONE SEEN) 04/09/18 18:17 Ur Squamous Epith Cells Few /HPF (NEGATIVE) 04/09/18 18:17 Amorphous Sediment 1+ /HPF (NEGATIVE) 04/09/18 18:17 Urine Bacteria Negative /HPF (NEGATIVE) 04/09/18 18:17 Ur Culture Indicated? No/not indicated 04/09/18 18:17 - Plan (1) Acute CVA (cerebrovascular accident) Status: Acute Plan: HEPARIN DRIP, PHYSICAL THERAPY, OCCUPATIONAL THERAPY, SPEECH THERAPY, SUPPLEMENTAL OXYGEN, CONTINUE TO MONITOR. (2) Left-sided weakness Status: Acute Plan: PHYSICAL THERAPY, CONTINUE TO MONITOR (3) Hypertension Status: Acute Qualifiers: Hypertension type: essential hypertension Qualified Code(s): I10 - Essential (primary) hypertension Plan: CONTINUE NORVASC, CONTINUE COREG, CATAPRES PATCH WEEKLY, LABETALOL PROTOCOL, CONTINUE DIOVAN, CONTINUE TO MONITOR (4) Anemia Status: Acute Qualifiers: Anemia type: iron deficiency Iron deficiency anemia type: unspecified iron deficiency Qualified Code(s): D50.9 - Iron deficiency anemia, unspecified Plan: CONTINUE HEMOCYTE, CONTINUE TO MONITOR (5) Congestive heart failure Status: Acute Qualifiers: Heart failure type: unspecified Heart failure chronicity: chronic Qualified Code(s): I50.9 - Heart failure, unspecified Plan: CONTINUE DIOVAN, CONTINUE ALDACTONE, CONTINUE COREG, CONTINUE TO MONITOR
[2018-04-12] MEDS: SNACK - Diabetic Appropriate PO SCH (21:44)
[2018-04-12] MEDS: NORVASC TAB 10 MG PO SCH (21:45)
[2018-04-12] MEDS: DIOVAN TAB 160 MG PO SCH (21:45)
[2018-04-13 03:54] LABS: BASOPHILS # (AUTO) 0.1 X10^3/uL (0.0-0.1); BASOPHILS % (AUTO) 1.7 % (0.2-1.0); EOSINOPHILS # (AUTO) 0.3 x10^3/uL (0.0-0.2); EOSINOPHILS % (AUTO) 3.1 % (0.9-2.9); HEMATOCRIT 34.7 % (36.0-47.0); HEMOGLOBIN 11.1 g/dL (12.0-16.0); LYMPHOCYTES # (AUTO) 2.7 X10^3/uL (1.3-2.9); LYMPHOCYTES % (AUTO) 31.6 % (21.0-51.0); MEAN CORPUSCULAR HEMOGLOBIN 24.4 pg (27.0-34.0); MEAN CORPUSCULAR VOLUME 76.3 fL (80.0-100.0); MEAN PLATELET VOLUME 8.3 fL (7.4-11.0); MONOCYTES # (AUTO) 0.8 x10^3/uL (0.3-0.8); MONOCYTES % (AUTO) 9.9 % (0.0-13.0); NEUTROPHILS # (AUTO) 4.5 x10^3/uL (2.2-4.8); NEUTROPHILS % (AUTO) 53.7 % (42.0-75.0); PLATELET COUNT 234 X10^3/uL (150.0-450.0); RED BLOOD COUNT 4.55 X10^6/uL (3.5-5.4); RED CELL DISTRIBUTION WIDTH 15.7 % (11.6-16.5); WHITE BLOOD COUNT 8.5 X10^3/uL (3.6-10.0)
[2018-04-13 04:27] LABS: ANISOCYTOSIS SLIGHT; HYPOCHROMASIA 1+; PLATELET MORPHOLOGY COMMENT NORMAL (NORMAL)
[2018-04-13 04:28] LABS: ALBUMIN 2.7 g/dL (3.4-5.0); CALCIUM 9.8 mg/dL (8.5-10.1); CARBON DIOXIDE 30.1 mmol/L (21-32); COR CA(FOR HYPOALB) 10.8 mg/dL (8.5-10.1); CREATININE 1.59 mg/dL (0.55-1.02); STOMATOCYTES SLIGHT; TOTAL PROTEIN 7.7 g/dL (6.4-8.2)
[2018-04-13] MEDS: COREG TAB 25 MG PO SCH ×2 (08:03→22:50)
[2018-04-13] MEDS: HYDROCHLOROTHIAZIDE 25 MG TAB PO SCH (08:04)
[2018-04-13] MEDS: ALDACTONE TAB 25 MG PO SCH (08:04)
[2018-04-13] MEDS: HEMOCYTE-PLUS PO SCH ×2 (08:04→22:50)
[2018-04-13] MEDS: PLAVIX PO SCH (08:05)
[2018-04-13] MEDS: HumuLIN R SUBCUT PRN (11:36)
[2018-04-13] MEDS ORDERED: BUTT CREAM (COMPOUND) ONE (14:35)
[2018-04-13] MEDS: BUTT CREAM (COMPOUND) TOP PRN (14:54)
[2018-04-13] MEDS: HEPARIN SODIUM IN D5W 25,000 UNITS/500 ML BAG IV PRN (16:19)
[2018-04-13] MEDS: SNACK - Diabetic Appropriate PO SCH (22:49)
[2018-04-13] MEDS: DIOVAN TAB 160 MG PO SCH (22:50)
[2018-04-13] MEDS: NORVASC TAB 10 MG PO SCH (22:50)
[2018-04-14 07:01] LABS: BASOPHILS # (AUTO) 0.1 X10^3/uL (0.0-0.1); BASOPHILS % (AUTO) 0.8 % (0.2-1.0); EOSINOPHILS # (AUTO) 0.4 x10^3/uL (0.0-0.2); EOSINOPHILS % (AUTO) 4.3 % (0.9-2.9); HEMATOCRIT 35.8 % (36.0-47.0); HEMOGLOBIN 11.4 g/dL (12.0-16.0); LYMPHOCYTES # (AUTO) 2.4 X10^3/uL (1.3-2.9); LYMPHOCYTES % (AUTO) 29.5 % (21.0-51.0); MEAN CORPUSCULAR HEMOGLOBIN 24.7 pg (27.0-34.0); MEAN CORPUSCULAR HGB CONC 31.8 g/dL (33.0-35.0); MEAN CORPUSCULAR VOLUME 77.6 fL (80.0-100.0); MEAN PLATELET VOLUME 8.8 fL (7.4-11.0); MONOCYTES # (AUTO) 1.1 x10^3/uL (0.3-0.8); NEUTROPHILS # (AUTO) 4.3 x10^3/uL (2.2-4.8); NEUTROPHILS % (AUTO) 52.4 % (42.0-75.0); PLATELET COUNT 215 X10^3/uL (150.0-450.0); RED BLOOD COUNT 4.62 X10^6/uL (3.5-5.4); RED CELL DISTRIBUTION WIDTH 16.1 % (11.6-16.5); WHITE BLOOD COUNT 8.2 X10^3/uL (3.6-10.0)
[2018-04-14 07:18] LABS: PLATELET MORPHOLOGY COMMENT NORMAL (NORMAL)
[2018-04-14 07:19] LABS: HYPOCHROMASIA SLIGHT; MICROCYTOSIS SLIGHT
[2018-04-14 09:11] LABS: ALBUMIN 2.6 g/dL (3.4-5.0); CALCIUM 9.8 mg/dL (8.5-10.1); COR CA(FOR HYPOALB) 10.9 mg/dL (8.5-10.1); CREATININE 1.75 mg/dL (0.55-1.02); TOTAL PROTEIN 7.7 g/dL (6.4-8.2)
[2018-04-14] MEDS: ALDACTONE TAB 25 MG PO SCH (09:36)
[2018-04-14] MEDS: HEMOCYTE-PLUS PO SCH ×2 (09:36→22:58)
[2018-04-14] MEDS: PLAVIX PO SCH (09:36)
[2018-04-14] MEDS: HYDROCHLOROTHIAZIDE 25 MG TAB PO SCH (09:36)
[2018-04-14] MEDS: COREG TAB 25 MG PO SCH ×2 (09:37→22:58)
[2018-04-14] MEDS: HumuLIN R SUBCUT PRN ×2 (11:18→15:53)
--- NOTE | 2018-04-14 12:28 | CT ---
HISTORY: CVA, increasing weakness Study: CT head without contrast Comparison: MRI brain 04/10/2018, CT head 04/09/2018 Technique: Axial noncontrast images with coronal and sagittal reformats. Dose reduction procedures we re used with mA/kv adjusted for body size. Findings: There is a large area of decreased attenuation in the distribution of the right anterior cerebral art yoshi representing the patient's known recent CVA. It is unchanged in size and configuration when paul red with the MRI 04/10/2018. There is no definite evidence for hemorrhagic transformation. The ventri cles are normal in size shape and position. There is slight decreased attenuation in the periventricu lar white matter suggestive of small vessel vascular disease. There is no evidence for hemorrhage, ma ss lesion, or extra-axial fluid collection. The visualized sinuses are clear. The calvarium is intact . IMPRESSION: No significant change in the appearance of the patient's larger recent nonhemorrhagic right MAXX cereb ral vascular accident. Small vessel disease Reported By:
--- NOTE | 2018-04-14 14:28 | PCM.PROG ---
Progress Note - Progress Note for Day of Date: 04/13/18 - Subjective Subjective: IS BEING TREATED FOR AN ACUTE RIGHT SIDED CVA. TODAY, SHE IS LYING IN BED WITH EYES CLOSED ON MORNING ROUNDS. SHE OPENS EYES TO VERBAL STIMULI, BUT IS ASPHASIC AND IS UNABLE TO FOLLOW COMMANDS. ON EXAMINATION , BILATERAL LUNGS ARE CLEAR TO AUSCULTATION. ABDOMEN IS ROUND, SOFT, AND NON- TENDER WITH NORMAL BOWEL SOUNDS NOTED IN ALL QUADRANTS. HER VITALS TODAY ARE 99.0-75-18-100%-138/79. LABS WERE OBTAINED. ABNORMAL LAB VALUES INCLUDE THE FOLLOWING: HGB 11.1, HCT 34.7, UN 21, CREATININE 1.59, GLUCOSE 169, AST 45, ALBUMIN 2.7. STAFF CONTINUES TO REPORT THAT THEY ARE UNABLE TO GET PATIENT TO TAKE HER MEDICATIONS OR EAT. TODAY, WE WILL CONTINUE WITH HEPARIN DRIP AND CURRENT PLAN OF CARE. WE WILL OBTAIN A REPEAT BRAIN CT IN THE MORNING. OTHERWISE , WE WILL FOLLOW UP WITH AM LABS AND CONTINUE TO MONITOR PATIENT. - Past Medical Family Social History Past Med/Fam/Surg Hx: No changes since H&P Allergies: Allergies No Known Drug Allergies Allergy (Verified 08/24/17 07:55) - Review of Systems ROS: No change since H&P - Vital Signs and I&O's Vital Signs: Temperature 97 F Pulse Rate [Bilateral Brachial 64 ] Respiratory Rate 20 Blood Pressure [Left Arm] 118/65 Blood Pressure 120/60 O2 Sat by Pulse Oximetry 97 Intake and Output: Intake & Output 04/12/18 04/13/18 04/14/18 04/15/18 11:59 11:59 11:59 11:59 Intake Total 1541 / 1541 2483 / 2483 1405 / 1405 600 / 600 Output Total 1225 / 1225 2200 / 2200 1425 / 1425 300 / 300 Balance 316 / 316 283 / 283 -20 / -20 300 / 300 - Physical Exam Oriented: Unable to test Eyes: Normal Ear: Normal Nose: Normal Throat: Normal Respiratory: Normal Cardiovascular: Normal. negative: S3, S4, Murmur : Normal Auscultation: Bowel Sounds: Normal Palpation: Normal Tenderness: Normal Skin: Normal Musculoskeletal: Left, Arm, Leg, Motor Deficit, Sensory Deficit Psychiatric: Normal Mood Description: Calm Affect: Normal Speech Pattern: Aphasic - Laboratory and Diagnostics Result Diagrams: 04/14/18 05:40 04/14/18 08:45 Labs: Laboratory WBC 8.2 X10^3/uL (3.6-10.0) 04/14/18 05:40 RBC 4.62 X10^6/uL (3.5-5.4) 04/14/18 05:40 Hgb 11.4 g/dL (12.0-16.0) L 04/14/18 05:40 Hct 35.8 % (36.0-47.0) L 04/14/18 05:40 MCV 77.6 fL (80.0-100.0) L 04/14/18 05:40 MCH 24.7 pg (27.0-34.0) L 04/14/18 05:40 MCHC 31.8 g/dL (33.0-35.0) L 04/14/18 05:40 RDW 16.1 % (11.6-16.5) 04/14/18 05:40 Plt Count 215 X10^3/uL (150.0-450.0) 04/14/18 05:40 Plt Count Comment Adequate (ADEQUATE) 04/14/18 05:40 MPV 8.8 fL (7.4-11.0) 04/14/18 05:40 Neut % (Auto) 52.4 % (42.0-75.0) 04/14/18 05:40 Lymph % (Auto) 29.5 % (21.0-51.0) 04/14/18 05:40 [place] % (Auto) 13.0 % (0.0-13.0) 04/14/18 05:40 Eos % (Auto) 4.3 % (0.9-2.9) H 04/14/18 05:40 Baso % (Auto) 0.8 % (0.2-1.0) 04/14/18 05:40 Neut # (Auto) 4.3 x10^3/uL (2.2-4.8) 04/14/18 05:40 Lymph # (Auto) 2.4 X10^3/uL (1.3-2.9) 04/14/18 05:40 [place] # (Auto) 1.1 x10^3/uL (0.3-0.8) H 04/14/18 05:40 Eos # (Auto) 0.4 x10^3/uL (0.0-0.2) H 04/14/18 05:40 Baso # (Auto) 0.1 X10^3/uL (0.0-0.1) 04/14/18 05:40 Absolute Nucleated RBC 0.1 /100WBC 04/14/18 05:40 Plt Morphology Comment Normal (NORMAL) 04/14/18 05:40 RBC Morphology Abnormal (NORMAL) A 04/14/18 05:40 Hypochromasia Slight A 04/14/18 05:40 Anisocytosis Slight A 04/13/18 03:22 Microcytosis Slight A 04/14/18 05:40 Stomatocytes Slight A 04/13/18 03:22 APTT 64.8 SECONDS (22.9-36.5) H 04/14/18 13:30 PTT Comment - 04/14/18 13:30 Sodium 135 mmol/L (136-145) L 04/14/18 08:45 Corrected Sodium 137 mmol/L (136-145) 04/14/18 08:45 Potassium 3.7 mmol/L (3.5-5.1) 04/14/18 08:45 Chloride 98 mmol/L (98-107) 04/14/18 08:45 Carbon Dioxide 32.0 mmol/L (21-32) 04/14/18 08:45 BUN 28 mg/dL (7-18) H 04/14/18 08:45 Creatinine 1.75 mg/dL (0.55-1.02) H 04/14/18 08:45 Est GFR (MDRD) Af Amer 38 (>60) L 04/14/18 08:45 Est GFR (MDRD) Non-Af 32 (>60) L 04/14/18 08:45 Glucose 204 mg/dL (65-99) H 04/14/18 08:45 POC Glucose (mg/dL) 176 mg/dL (65-99) H 04/13/18 05:05 Calcium 9.8 mg/dL (8.5-10.1) 04/14/18 08:45 Corrected Calcium 10.9 mg/dL (8.5-10.1) H 04/14/18 08:45 Magnesium 1.9 mg/dL (1.7-2.9) 04/09/18 14:31 Total Bilirubin 0.30 mg/dL (0.2-1.0) 04/14/18 08:45 AST 55 Units/L (15-37) H 04/14/18 08:45 ALT 42 Units/L (12-78) 04/14/18 08:45 Alkaline Phosphatase 76 Units/L (46-116) 04/14/18 08:45 Total Protein 7.7 g/dL (6.4-8.2) 04/14/18 08:45 Albumin 2.6 g/dL (3.4-5.0) L 04/14/18 08:45 Globulin 5.1 g/dL (2.5-4.5) H 04/14/18 08:45 Albumin/Globulin Ratio 0.5 Ratio (1.1-2.1) L 04/14/18 08:45 Specimen Type Clean catch urine 04/09/18 18:17 Urine Color Yellow (YELLOW) 04/09/18 18:17 Urine Appearance Clear (CLEAR) 04/09/18 18:17 Urine pH 5.0 (5.0 - 8.0) 04/09/18 18:17 Ur Specific [place] 1.020 (1.000-1.030) 04/09/18 18:17 Urine Protein 2+ (NEGATIVE) 04/09/18 18:17 Urine Glucose (UA) Negative (NEGATIVE) 04/09/18 18:17 Urine Ketones Negative (NEGATIVE) 04/09/18 18:17 Urine Occult Blood 4+ (NEGATIVE) 04/09/18 18:17 Urine Nitrite Negative (NEGATIVE) 04/09/18 18:17 Urine Bilirubin Negative (NEGATIVE) 04/09/18 18:17 Urine Urobilinogen 1+ (NORMAL) 04/09/18 18:17 Ur Leukocyte Esterase Negative (NEGATIVE) 04/09/18 18:17 Urine RBC 0-2 /HPF (NONE SEEN) 04/09/18 18:17 Urine WBC 0-2 /HPF (NONE SEEN) 04/09/18 18:17 Ur Squamous Epith Cells Few /HPF (NEGATIVE) 04/09/18 18:17 Amorphous Sediment 1+ /HPF (NEGATIVE) 04/09/18 18:17 Urine Bacteria Negative /HPF (NEGATIVE) 04/09/18 18:17 Ur Culture Indicated? No/not indicated 04/09/18 18:17 - Plan (1) Acute CVA (cerebrovascular accident) Status: Acute Plan: HEPARIN DRIP, PHYSICAL THERAPY, OCCUPATIONAL THERAPY, SPEECH THERAPY, SUPPLEMENTAL OXYGEN, CONTINUE TO MONITOR, REPEAT BRAIN CT TOMORROW MORNING. (2) Left-sided weakness Status: Acute Plan: PHYSICAL THERAPY, CONTINUE TO MONITOR, REPEAT BRAIN CT IN AM. (3) Hypertension Status: Acute Qualifiers: Hypertension type: essential hypertension Qualified Code(s): I10 - Essential (primary) hypertension Plan: CONTINUE NORVASC, CONTINUE COREG, CATAPRES PATCH WEEKLY, LABETALOL PROTOCOL, CONTINUE DIOVAN, CONTINUE TO MONITOR (4) Anemia Status: Acute Qualifiers: Anemia type: iron deficiency Iron deficiency anemia type: unspecified iron deficiency Qualified Code(s): D50.9 - Iron deficiency anemia, unspecified Plan: CONTINUE HEMOCYTE, CONTINUE TO MONITOR (5) Congestive heart failure Status: Acute Qualifiers: Heart failure type: unspecified Heart failure chronicity: chronic Qualified Code(s): I50.9 - Heart failure, unspecified Plan: CONTINUE DIOVAN, CONTINUE ALDACTONE, CONTINUE COREG, CONTINUE TO MONITOR
[2018-04-14] MEDS: D5W 1000 ML IV 1,000 ML IV SCH ×2 (18:31→18:34)
[2018-04-14] MEDS: NORVASC TAB 10 MG PO SCH (22:58)
[2018-04-14] MEDS: DIOVAN TAB 160 MG PO SCH (22:59)
[2018-04-15 05:17] LABS: BASOPHILS # (AUTO) 0.1 X10^3/uL (0.0-0.1); BASOPHILS % (AUTO) 1.4 % (0.2-1.0); EOSINOPHILS # (AUTO) 0.3 x10^3/uL (0.0-0.2); EOSINOPHILS % (AUTO) 3.3 % (0.9-2.9); HEMATOCRIT 34.6 % (36.0-47.0); HEMOGLOBIN 11.2 g/dL (12.0-16.0); LYMPHOCYTES # (AUTO) 2.6 X10^3/uL (1.3-2.9); LYMPHOCYTES % (AUTO) 30.6 % (21.0-51.0); MEAN CORPUSCULAR HEMOGLOBIN 24.8 pg (27.0-34.0); MEAN CORPUSCULAR HGB CONC 32.3 g/dL (33.0-35.0); MEAN CORPUSCULAR VOLUME 76.7 fL (80.0-100.0); MEAN PLATELET VOLUME 8.2 fL (7.4-11.0); MONOCYTES % (AUTO) 11.2 % (0.0-13.0); NEUTROPHILS # (AUTO) 4.6 x10^3/uL (2.2-4.8); NEUTROPHILS % (AUTO) 53.5 % (42.0-75.0); PLATELET COUNT 248 X10^3/uL (150.0-450.0); RED BLOOD COUNT 4.51 X10^6/uL (3.5-5.4); RED CELL DISTRIBUTION WIDTH 16.2 % (11.6-16.5); WHITE BLOOD COUNT 8.5 X10^3/uL (3.6-10.0)
[2018-04-15 05:26] LABS: ALBUMIN 2.7 g/dL (3.4-5.0); CALCIUM 10.2 mg/dL (8.5-10.1); CARBON DIOXIDE 28.7 mmol/L (21-32); COR CA(FOR HYPOALB) 11.2 mg/dL (8.5-10.1); CREATININE 1.81 mg/dL (0.55-1.02)
[2018-04-15 05:30] LABS: HYPOCHROMASIA SLIGHT; PLATELET MORPHOLOGY COMMENT NORMAL (NORMAL)
[2018-04-15] MEDS: HumuLIN R SUBCUT PRN ×3 (06:46→16:41)
[2018-04-15] MEDS: HEPARIN SODIUM IN D5W 25,000 UNITS/500 ML BAG IV PRN (06:47)
[2018-04-15] MEDS: COREG TAB 25 MG PO SCH ×2 (09:00→22:16)
[2018-04-15] MEDS: HYDROCHLOROTHIAZIDE 25 MG TAB PO SCH (09:01)
[2018-04-15] MEDS: BUTT CREAM (COMPOUND) TOP PRN (09:01)
[2018-04-15] MEDS: PLAVIX PO SCH (09:01)
[2018-04-15] MEDS: ALDACTONE TAB 25 MG PO SCH (09:01)
[2018-04-15] MEDS: HEMOCYTE-PLUS PO SCH ×2 (09:01→22:19)
[2018-04-15] MEDS: SNACK - Diabetic Appropriate PO SCH ×2 (10:47→22:15)
--- NOTE | 2018-04-15 17:22 | PCM.PROG ---
Progress Note - Progress Note for Day of Date: 04/14/18 - Subjective Subjective: IS BEING TREATED FOR AN ACUTE RIGHT SIDED CVA. TODAY, SHE IS LYING IN BED WITH EYES CLOSED ON MORNING ROUNDS. 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 SHE DOES MOVE LEFT ARM ON COMMAND TODAY. ON EXAMINATION, BILATERAL LUNGS ARE CLEAR TO AUSCULTATION. ABDOMEN IS ROUND, SOFT, AND NON- TENDER WITH NORMAL BOWEL SOUNDS NOTED IN ALL QUADRANTS. HER VITALS TODAY ARE 98.6-73-20-100%-136/75. LABS WERE OBTAINED. ABNORMAL LAB VALUES INCLUDE THE FOLLOWING: HGB 11.4, HCT 35.8, SODIUM 135, BUN 28, CREATININE 1.75, GLUCOSE 204 , AST 55, ALBUMIN 2.6. REPEAT BRAIN CT REPORTS NO CHANGES. STAFF REPORTS THAT THEY WERE ABLE TO GET PATIENT TO TAKE HER MEDICATIONS THIS MORNING, CRUSHED IN APPLE SAUCE. TODAY, WE WILL CONTINUE WITH HEPARIN DRIP AND CURRENT PLAN OF CARE. OTHERWISE, WE WILL FOLLOW UP WITH AM LABS AND CONTINUE TO MONITOR PATIENT. - Past Medical Family Social History Past Med/Fam/Surg Hx: No changes since H&P Allergies: Allergies No Known Drug Allergies Allergy (Verified 08/24/17 07:55) - Review of Systems ROS: No change since H&P - Vital Signs and I&O's Vital Signs: Temperature 97 F Pulse Rate [Bilateral Brachial 66 ] Respiratory Rate 22 Blood Pressure [Left Arm] 138/75 Blood Pressure 120/60 O2 Sat by Pulse Oximetry 99 Intake and Output: Intake & Output 04/13/18 04/14/18 04/15/18 04/16/18 11:59 11:59 11:59 11:59 Intake Total 2483 / 2483 1405 / 1405 1902 / 1902 585 / 585 Output Total 2200 / 2200 1425 / 1425 1150 / 1150 650 / 650 Balance 283 / 283 -20 / -20 752 / 752 -65 / -65 - Physical Exam Oriented: Unable to test Eyes: Normal, Diplopia Ear: Normal Nose: Normal Throat: Normal Respiratory: Normal, Generalized Cardiovascular: Normal. negative: S3, S4, Murmur : Normal Auscultation: Bowel Sounds: Normal Tenderness: Normal Skin: Normal Musculoskeletal: Left, Arm, Leg, Motor Deficit, Sensory Deficit Psychiatric: Normal Mood Description: Calm Affect: Normal Speech Pattern: Aphasic - Laboratory and Diagnostics Result Diagrams: 04/15/18 04:55 04/15/18 04:55 Labs: Laboratory WBC 8.5 X10^3/uL (3.6-10.0) 04/15/18 04:55 RBC 4.51 X10^6/uL (3.5-5.4) 04/15/18 04:55 Hgb 11.2 g/dL (12.0-16.0) L 04/15/18 04:55 Hct 34.6 % (36.0-47.0) L 04/15/18 04:55 MCV 76.7 fL (80.0-100.0) L 04/15/18 04:55 MCH 24.8 pg (27.0-34.0) L 04/15/18 04:55 MCHC 32.3 g/dL (33.0-35.0) L 04/15/18 04:55 RDW 16.2 % (11.6-16.5) 04/15/18 04:55 Plt Count 248 X10^3/uL (150.0-450.0) 04/15/18 04:55 Plt Count Comment Adequate (ADEQUATE) 04/15/18 04:55 MPV 8.2 fL (7.4-11.0) 04/15/18 04:55 Neut % (Auto) 53.5 % (42.0-75.0) 04/15/18 04:55 Lymph % (Auto) 30.6 % (21.0-51.0) 04/15/18 04:55 [place] % (Auto) 11.2 % (0.0-13.0) 04/15/18 04:55 Eos % (Auto) 3.3 % (0.9-2.9) H 04/15/18 04:55 Baso % (Auto) 1.4 % (0.2-1.0) H 04/15/18 04:55 Neut # (Auto) 4.6 x10^3/uL (2.2-4.8) 04/15/18 04:55 Lymph # (Auto) 2.6 X10^3/uL (1.3-2.9) 04/15/18 04:55 [place] # (Auto) 1.0 x10^3/uL (0.3-0.8) H 04/15/18 04:55 Eos # (Auto) 0.3 x10^3/uL (0.0-0.2) H 04/15/18 04:55 Baso # (Auto) 0.1 X10^3/uL (0.0-0.1) 04/15/18 04:55 Absolute Nucleated RBC 0.0 /100WBC 04/15/18 04:55 Plt Morphology Comment Normal (NORMAL) 04/15/18 04:55 RBC Morphology Abnormal (NORMAL) A 04/15/18 04:55 Hypochromasia Slight A 04/15/18 04:55 Anisocytosis Slight A 04/13/18 03:22 Microcytosis Slight A 04/14/18 05:40 Stomatocytes Slight A 04/13/18 03:22 APTT 96.2 SECONDS (22.9-36.5) H 04/15/18 04:55 PTT Comment - 04/15/18 04:55 Sodium 133 mmol/L (136-145) L 04/15/18 04:55 Corrected Sodium 135 mmol/L (136-145) L 04/15/18 04:55 Potassium 3.8 mmol/L (3.5-5.1) 04/15/18 04:55 Chloride 97 mmol/L (98-107) L 04/15/18 04:55 Carbon Dioxide 28.7 mmol/L (21-32) 04/15/18 04:55 BUN 32 mg/dL (7-18) H 04/15/18 04:55 Creatinine 1.81 mg/dL (0.55-1.02) H 04/15/18 04:55 Est GFR (MDRD) Af Amer 37 (>60) L 04/15/18 04:55 Est GFR (MDRD) Non-Af 30 (>60) L 04/15/18 04:55 Glucose 199 mg/dL (65-99) H 04/15/18 04:55 POC Glucose (mg/dL) 176 mg/dL (65-99) H 04/13/18 05:05 Calcium 10.2 mg/dL (8.5-10.1) H 04/15/18 04:55 Corrected Calcium 11.2 mg/dL (8.5-10.1) H 04/15/18 04:55 Magnesium 1.9 mg/dL (1.7-2.9) 04/09/18 14:31 Total Bilirubin 0.30 mg/dL (0.2-1.0) 04/15/18 04:55 AST 64 Units/L (15-37) H 04/15/18 04:55 ALT 54 Units/L (12-78) 04/15/18 04:55 Alkaline Phosphatase 76 Units/L (46-116) 04/15/18 04:55 Total Protein 8.0 g/dL (6.4-8.2) 04/15/18 04:55 Albumin 2.7 g/dL (3.4-5.0) L 04/15/18 04:55 Globulin 5.3 g/dL (2.5-4.5) H 04/15/18 04:55 Albumin/Globulin Ratio 0.5 Ratio (1.1-2.1) L 04/15/18 04:55 Specimen Type Clean catch urine 04/09/18 18:17 Urine Color Yellow (YELLOW) 04/09/18 18:17 Urine Appearance Clear (CLEAR) 04/09/18 18:17 Urine pH 5.0 (5.0 - 8.0) 04/09/18 18:17 Ur Specific [place] 1.020 (1.000-1.030) 04/09/18 18:17 Urine Protein 2+ (NEGATIVE) 04/09/18 18:17 Urine Glucose (UA) Negative (NEGATIVE) 04/09/18 18:17 Urine Ketones Negative (NEGATIVE) 04/09/18 18:17 Urine Occult Blood 4+ (NEGATIVE) 04/09/18 18:17 Urine Nitrite Negative (NEGATIVE) 04/09/18 18:17 Urine Bilirubin Negative (NEGATIVE) 04/09/18 18:17 Urine Urobilinogen 1+ (NORMAL) 04/09/18 18:17 Ur Leukocyte Esterase Negative (NEGATIVE) 04/09/18 18:17 Urine RBC 0-2 /HPF (NONE SEEN) 04/09/18 18:17 Urine WBC 0-2 /HPF (NONE SEEN) 04/09/18 18:17 Ur Squamous Epith Cells Few /HPF (NEGATIVE) 04/09/18 18:17 Amorphous Sediment 1+ /HPF (NEGATIVE) 04/09/18 18:17 Urine Bacteria Negative /HPF (NEGATIVE) 04/09/18 18:17 Ur Culture Indicated? No/not indicated 04/09/18 18:17 - Plan (1) Acute CVA (cerebrovascular accident) Status: Acute Plan: HEPARIN DRIP, PHYSICAL THERAPY, OCCUPATIONAL THERAPY, SPEECH THERAPY, SUPPLEMENTAL OXYGEN, CONTINUE TO MONITOR (2) Left-sided weakness Status: Acute Plan: PHYSICAL THERAPY, CONTINUE TO MONITOR, REPEAT BRAIN CT IN AM. (3) Hypertension Status: Acute Qualifiers: Hypertension type: essential hypertension Qualified Code(s): I10 - Essential (primary) hypertension Plan: CONTINUE NORVASC, CONTINUE COREG, CATAPRES PATCH WEEKLY, LABETALOL PROTOCOL, CONTINUE DIOVAN, CONTINUE TO MONITOR (4) Anemia Status: Acute Qualifiers: Anemia type: iron deficiency Iron deficiency anemia type: unspecified iron deficiency Qualified Code(s): D50.9 - Iron deficiency anemia, unspecified Plan: CONTINUE HEMOCYTE, CONTINUE TO MONITOR (5) Congestive heart failure Status: Acute Qualifiers: Heart failure type: unspecified Heart failure chronicity: chronic Qualified Code(s): I50.9 - Heart failure, unspecified Plan: CONTINUE DIOVAN, CONTINUE ALDACTONE, CONTINUE COREG, CONTINUE TO MONITOR
[2018-04-15] MEDS: D5W 1000 ML IV 1,000 ML IV SCH (22:16)
[2018-04-15] MEDS: DIOVAN TAB 160 MG PO SCH (22:19)
[2018-04-15] MEDS: NORVASC TAB 10 MG PO SCH (22:20)
[2018-04-16] MEDS: HEPARIN SODIUM IN D5W 25,000 UNITS/500 ML BAG IV PRN ×2 (00:53→20:29)
[2018-04-16 06:31] LABS: BASOPHILS # (AUTO) 0.1 X10^3/uL (0.0-0.1); BASOPHILS % (AUTO) 0.7 % (0.2-1.0); EOSINOPHILS # (AUTO) 0.3 x10^3/uL (0.0-0.2); EOSINOPHILS % (AUTO) 3.3 % (0.9-2.9); HEMATOCRIT 34.8 % (36.0-47.0); HEMOGLOBIN 11.2 g/dL (12.0-16.0); LYMPHOCYTES # (AUTO) 2.7 X10^3/uL (1.3-2.9); LYMPHOCYTES % (AUTO) 30.3 % (21.0-51.0); MEAN CORPUSCULAR HEMOGLOBIN 24.7 pg (27.0-34.0); MEAN CORPUSCULAR HGB CONC 32.3 g/dL (33.0-35.0); MEAN CORPUSCULAR VOLUME 76.5 fL (80.0-100.0); MEAN PLATELET VOLUME 8.4 fL (7.4-11.0); MONOCYTES # (AUTO) 1.1 x10^3/uL (0.3-0.8); MONOCYTES % (AUTO) 12.1 % (0.0-13.0); NEUTROPHILS # (AUTO) 4.7 x10^3/uL (2.2-4.8); NEUTROPHILS % (AUTO) 53.6 % (42.0-75.0); PLATELET COUNT 242 X10^3/uL (150.0-450.0); RED BLOOD COUNT 4.54 X10^6/uL (3.5-5.4); WHITE BLOOD COUNT 8.8 X10^3/uL (3.6-10.0)
[2018-04-16 07:02] LABS: PLATELET MORPHOLOGY COMMENT NORMAL (NORMAL)
[2018-04-16 07:03] LABS: ALBUMIN 2.7 g/dL (3.4-5.0); CALCIUM 10.1 mg/dL (8.5-10.1); COR CA(FOR HYPOALB) 11.1 mg/dL (8.5-10.1); CREATININE 1.73 mg/dL (0.55-1.02); TOTAL PROTEIN 7.7 g/dL (6.4-8.2)
[2018-04-16] MEDS: HYDROCHLOROTHIAZIDE 25 MG TAB PO SCH (08:20)
[2018-04-16] MEDS: HEMOCYTE-PLUS PO SCH ×2 (08:20→20:28)
[2018-04-16] MEDS: ALDACTONE TAB 25 MG PO SCH (08:20)
[2018-04-16] MEDS: COREG TAB 25 MG PO SCH ×2 (08:20→20:28)
[2018-04-16] MEDS: PLAVIX PO SCH (08:20)
[2018-04-16] MEDS: HumuLIN R SUBCUT PRN ×3 (11:16→20:30)
--- NOTE | 2018-04-16 17:30 | PCM.PROG ---
Progress Note - Progress Note for Day of Date: 04/15/18 - Subjective Subjective: IS BEING TREATED FOR AN ACUTE RIGHT SIDED CVA. TODAY, SHE IS LYING IN BED WITH EYES CLOSED ON MORNING ROUNDS. SHE CONTINUES TO OPEN EYES TO VERBAL STIMULI, BUT DOES NOT MOVE LEFT SIDE OF BODY. SHE DOES MOVE RIGHT ARM ON COMMAND. ON EXAMINATION, BILATERAL LUNGS ARE CLEAR TO AUSCULTATION. ABDOMEN IS ROUND, SOFT, AND NON-TENDER WITH NORMAL BOWEL SOUNDS NOTED IN ALL QUADRANTS. HER VITALS TODAY ARE 97.0-72-20-96%-118/65. LABS WERE OBTAINED. ABNORMAL LAB VALUES INCLUDE THE FOLLOWING: HGB 11.2, HCT 34.6, SODIUM 133, CHLORIDE 97, BUN 32, CREATININE 1.81, GLUCOSE 199, AST 64, ALBUMIN 2.7, GLOBULIN 5.3. PATIENT CONTINUES TO CONSUME A SMALL AMOUNT OF FOOD AND TAKES MEDICATIONS CRUSEHED WITH SEVERAL CUES TO SWALLOW. TODAY, WE WILL CONTINUE WITH HEPARIN DRIP AND CURRENT PLAN OF CARE. WE WILL DISCUSS PLACEMENT OF PEG TUBE WITH FAMILY WELL PAC PLACEMENT AND ALF PLACEMENT. OTHERWISE, WE WILL FOLLOW UP WITH AM LABS AND CONTINUE TO MONITOR PATIENT. - Past Medical Family Social History Past Med/Fam/Surg Hx: No changes since H&P Allergies: Allergies No Known Drug Allergies Allergy (Verified 08/24/17 07:55) - Review of Systems ROS: No change since H&P - Vital Signs and I&O's Vital Signs: Temperature 96.7 F Pulse Rate [Bilateral Brachial 66 ] Respiratory Rate 17 Blood Pressure [Left Arm] 95/54 Blood Pressure 120/60 O2 Sat by Pulse Oximetry 99 Intake and Output: Intake & Output 04/14/18 04/15/18 04/16/18 04/17/18 11:59 11:59 11:59 11:59 Intake Total 1405 / 1405 1902 / 1902 1585 / 1585 435 / 435 Output Total 1425 / 1425 1150 / 1150 1700 / 1700 500 / 500 Balance -20 / -20 752 / 752 -115 / -115 -65 / -65 - Physical Exam Oriented: Unable to test Eyes: Normal, Diplopia Ear: Normal Nose: Normal Throat: Normal Respiratory: Normal, Generalized Cardiovascular: Normal. negative: S3, S4, Murmur : Normal Auscultation: Bowel Sounds: Normal Palpation: Normal Tenderness: Normal Skin: Normal Musculoskeletal: Left, Arm, Leg, Motor Deficit, Sensory Deficit Psychiatric: Normal Mood Description: Calm Affect: Normal Speech Pattern: Aphasic - Laboratory and Diagnostics Result Diagrams: 04/16/18 05:28 04/16/18 05:28 Labs: Laboratory WBC 8.8 X10^3/uL (3.6-10.0) 04/16/18 05:28 RBC 4.54 X10^6/uL (3.5-5.4) 04/16/18 05:28 Hgb 11.2 g/dL (12.0-16.0) L 04/16/18 05:28 Hct 34.8 % (36.0-47.0) L 04/16/18 05:28 MCV 76.5 fL (80.0-100.0) L 04/16/18 05:28 MCH 24.7 pg (27.0-34.0) L 04/16/18 05:28 MCHC 32.3 g/dL (33.0-35.0) L 04/16/18 05:28 RDW 16.0 % (11.6-16.5) 04/16/18 05:28 Plt Count 242 X10^3/uL (150.0-450.0) 04/16/18 05:28 Plt Count Comment Adequate (ADEQUATE) 04/16/18 05:28 MPV 8.4 fL (7.4-11.0) 04/16/18 05:28 Neut % (Auto) 53.6 % (42.0-75.0) 04/16/18 05:28 Lymph % (Auto) 30.3 % (21.0-51.0) 04/16/18 05:28 [place] % (Auto) 12.1 % (0.0-13.0) 04/16/18 05:28 Eos % (Auto) 3.3 % (0.9-2.9) H 04/16/18 05:28 Baso % (Auto) 0.7 % (0.2-1.0) 04/16/18 05:28 Neut # (Auto) 4.7 x10^3/uL (2.2-4.8) 04/16/18 05:28 Lymph # (Auto) 2.7 X10^3/uL (1.3-2.9) 04/16/18 05:28 [place] # (Auto) 1.1 x10^3/uL (0.3-0.8) H 04/16/18 05:28 Eos # (Auto) 0.3 x10^3/uL (0.0-0.2) H 04/16/18 05:28 Baso # (Auto) 0.1 X10^3/uL (0.0-0.1) 04/16/18 05:28 Absolute Nucleated RBC 0.0 /100WBC 04/16/18 05:28 Plt Morphology Comment Normal (NORMAL) 04/16/18 05:28 RBC Morphology Normal (NORMAL) 04/16/18 05:28 Hypochromasia Slight A 04/15/18 04:55 Anisocytosis Slight A 04/13/18 03:22 Microcytosis Slight A 04/14/18 05:40 Stomatocytes Slight A 04/13/18 03:22 APTT 87.8 SECONDS (22.9-36.5) H 04/16/18 14:03 PTT Comment - 04/16/18 14:03 Sodium 134 mmol/L (136-145) L 04/16/18 05:28 Corrected Sodium 136 mmol/L (136-145) 04/16/18 05:28 Potassium 3.7 mmol/L (3.5-5.1) 04/16/18 05:28 Chloride 97 mmol/L (98-107) L 04/16/18 05:28 Carbon Dioxide 29.0 mmol/L (21-32) 04/16/18 05:28 BUN 36 mg/dL (7-18) H 04/16/18 05:28 Creatinine 1.73 mg/dL (0.55-1.02) H 04/16/18 05:28 Est GFR (MDRD) Af Amer 39 (>60) L 04/16/18 05:28 Est GFR (MDRD) Non-Af 32 (>60) L 04/16/18 05:28 Glucose 180 mg/dL (65-99) H 04/16/18 05:28 POC Glucose (mg/dL) 183 mg/dL (65-99) H 04/16/18 16:52 Calcium 10.1 mg/dL (8.5-10.1) 04/16/18 05:28 Corrected Calcium 11.1 mg/dL (8.5-10.1) H 04/16/18 05:28 Magnesium 1.9 mg/dL (1.7-2.9) 04/09/18 14:31 Total Bilirubin 0.30 mg/dL (0.2-1.0) 04/16/18 05:28 AST 61 Units/L (15-37) H 04/16/18 05:28 ALT 63 Units/L (12-78) 04/16/18 05:28 Alkaline Phosphatase 75 Units/L (46-116) 04/16/18 05:28 Total Protein 7.7 g/dL (6.4-8.2) 04/16/18 05:28 Albumin 2.7 g/dL (3.4-5.0) L 04/16/18 05:28 Globulin 5.0 g/dL (2.5-4.5) H 04/16/18 05:28 Albumin/Globulin Ratio 0.5 Ratio (1.1-2.1) L 04/16/18 05:28 Specimen Type Clean catch urine 04/09/18 18:17 Urine Color Yellow (YELLOW) 04/09/18 18:17 Urine Appearance Clear (CLEAR) 04/09/18 18:17 Urine pH 5.0 (5.0 - 8.0) 04/09/18 18:17 Ur Specific [place] 1.020 (1.000-1.030) 04/09/18 18:17 Urine Protein 2+ (NEGATIVE) 04/09/18 18:17 Urine Glucose (UA) Negative (NEGATIVE) 04/09/18 18:17 Urine Ketones Negative (NEGATIVE) 04/09/18 18:17 Urine Occult Blood 4+ (NEGATIVE) 04/09/18 18:17 Urine Nitrite Negative (NEGATIVE) 04/09/18 18:17 Urine Bilirubin Negative (NEGATIVE) 04/09/18 18:17 Urine Urobilinogen 1+ (NORMAL) 04/09/18 18:17 Ur Leukocyte Esterase Negative (NEGATIVE) 04/09/18 18:17 Urine RBC 0-2 /HPF (NONE SEEN) 04/09/18 18:17 Urine WBC 0-2 /HPF (NONE SEEN) 04/09/18 18:17 Ur Squamous Epith Cells Few /HPF (NEGATIVE) 04/09/18 18:17 Amorphous Sediment 1+ /HPF (NEGATIVE) 04/09/18 18:17 Urine Bacteria Negative /HPF (NEGATIVE) 04/09/18 18:17 Ur Culture Indicated? No/not indicated 04/09/18 18:17 - Plan (1) Acute CVA (cerebrovascular accident) Status: Acute Plan: HEPARIN DRIP, PHYSICAL THERAPY, OCCUPATIONAL THERAPY, SPEECH THERAPY, SUPPLEMENTAL OXYGEN, CONTINUE TO MONITOR (2) Left-sided weakness Status: Acute Plan: PHYSICAL THERAPY, CONTINUE TO MONITOR. (3) Hypertension Status: Acute Qualifiers: Hypertension type: essential hypertension Qualified Code(s): I10 - Essential (primary) hypertension Plan: CONTINUE NORVASC, CONTINUE COREG, CATAPRES PATCH WEEKLY, LABETALOL PROTOCOL, CONTINUE DIOVAN, CONTINUE TO MONITOR (4) Anemia Status: Acute Qualifiers: Anemia type: iron deficiency Iron deficiency anemia type: unspecified iron deficiency Qualified Code(s): D50.9 - Iron deficiency anemia, unspecified Plan: CONTINUE HEMOCYTE, CONTINUE TO MONITOR (5) Congestive heart failure Status: Acute Qualifiers: Heart failure type: unspecified Heart failure chronicity: chronic Qualified Code(s): I50.9 - Heart failure, unspecified Plan: CONTINUE DIOVAN, CONTINUE ALDACTONE, CONTINUE COREG, CONTINUE TO MONITOR
[2018-04-16] MEDS: D5W 1000 ML IV 1,000 ML IV SCH (19:34)
[2018-04-16] MEDS: NORVASC TAB 10 MG PO SCH (20:28)
[2018-04-16] MEDS: SNACK - Diabetic Appropriate PO SCH (20:28)
[2018-04-16] MEDS: DIOVAN TAB 160 MG PO SCH (20:28)
[2018-04-17 06:48] LABS: BASOPHILS # (AUTO) 0.1 X10^3/uL (0.0-0.1); BASOPHILS % (AUTO) 0.9 % (0.2-1.0); EOSINOPHILS # (AUTO) 0.3 x10^3/uL (0.0-0.2); EOSINOPHILS % (AUTO) 3.4 % (0.9-2.9); HEMATOCRIT 34.2 % (36.0-47.0); LYMPHOCYTES # (AUTO) 2.7 X10^3/uL (1.3-2.9); MEAN CORPUSCULAR HEMOGLOBIN 24.8 pg (27.0-34.0); MEAN CORPUSCULAR HGB CONC 32.1 g/dL (33.0-35.0); MEAN CORPUSCULAR VOLUME 77.2 fL (80.0-100.0); MEAN PLATELET VOLUME 8.4 fL (7.4-11.0); MONOCYTES # (AUTO) 1.1 x10^3/uL (0.3-0.8); MONOCYTES % (AUTO) 11.7 % (0.0-13.0); NEUTROPHILS # (AUTO) 5.2 x10^3/uL (2.2-4.8); PLATELET COUNT 267 X10^3/uL (150.0-450.0); RED BLOOD COUNT 4.43 X10^6/uL (3.5-5.4); RED CELL DISTRIBUTION WIDTH 16.2 % (11.6-16.5); WHITE BLOOD COUNT 9.4 X10^3/uL (3.6-10.0)
[2018-04-17 07:19] LABS: BILIRUBIN,URINE NEGATIVE (NEGATIVE); BLOOD/HEMOGLOBIN,URINE 3+ (NEGATIVE); GLUCOSE, URINE NEGATIVE (NEGATIVE); KETONES,URINE NEGATIVE (NEGATIVE); LEUKOCYTE ESTERASE ,URINE 3+ (NEGATIVE); NITRITES,URINE NEGATIVE (NEGATIVE); PROTEIN,URINE 2+ (NEGATIVE); UROBILINOGEN,URINE NORMAL (NORMAL)
[2018-04-17 07:20] LABS: ALBUMIN 2.8 g/dL (3.4-5.0); CALCIUM 10.3 mg/dL (8.5-10.1); CARBON DIOXIDE 26.7 mmol/L (21-32); COR CA(FOR HYPOALB) 11.3 mg/dL (8.5-10.1); CREATININE 2.13 mg/dL (0.55-1.02); TOTAL PROTEIN 7.9 g/dL (6.4-8.2)
[2018-04-17 07:21] LABS: APPEARANCE,URINE HAZY (CLEAR); COLOR,URINE YELLOW (YELLOW)
[2018-04-17 07:26] LABS: AMORPHOUS SEDIMENT,UR 2+ /HPF (NEGATIVE); BACTERIA,URINE TRACE /HPF (NEGATIVE); SQUAMOUS EPITHELIAL CELL,UR RARE /HPF (NEGATIVE)
[2018-04-17] MEDS ORDERED: LR 1000 ML IV 1,000 ML IV ONE (07:54)
[2018-04-17] MEDS ORDERED: DIPRIVAN VIAL 20 ML ONE (08:05)
[2018-04-17] MEDS: HEPARIN SODIUM IN D5W 25,000 UNITS/500 ML BAG IV PRN (09:01)
[2018-04-17] MEDS ORDERED: ROCEPHIN 1 GRAM IV PREMIX 1 G/50 ML IV.SOLN. IV ONE (09:36)
[2018-04-17] MEDS ORDERED: HEPARIN SODIUM INJ 5000 UNITS ONE (10:00)
[2018-04-17] MEDS: ALDACTONE TAB 25 MG PO SCH (10:08)
[2018-04-17] MEDS: COREG TAB 25 MG PO SCH ×2 (10:08→20:04)
[2018-04-17] MEDS: HEMOCYTE-PLUS PO SCH ×2 (10:08→20:04)
[2018-04-17] MEDS: HYDROCHLOROTHIAZIDE 25 MG TAB PO SCH (10:09)
[2018-04-17] MEDS: PLAVIX PO SCH (10:09)
[2018-04-17] MEDS: ROCEPHIN VIAL 1 GRAM 1 G in NS 100 ML IV + SPIKE MINIBAG* 100 ML IV SCH (10:09)
[2018-04-17] MEDS ORDERED: HEPARIN SODIUM INJ 5000 UNITS IVP ONE (10:12)
[2018-04-17] MEDS ORDERED: ROCEPHIN 1 GRAM IV PREMIX IV SCH (11:00)
[2018-04-17] MEDS: HumuLIN R SUBCUT PRN (11:16)
[2018-04-17] MEDS ORDERED: D5W 1000 ML IV 1,000 ML IV ONE (12:17)
[2018-04-17] MEDS: NS 1000 ML 1,000 ML IV SCH ×2 (12:19→23:27)
--- NOTE | 2018-04-17 14:58 | PCM.PROG ---
Progress Note - Progress Note for Day of Date: 04/16/18 - Subjective Subjective: IS BEING TREATED FOR AN ACUTE RIGHT SIDED CVA. TODAY, SHE IS LYING IN BED WITH EYES CLOSED ON MORNING ROUNDS. SHE AWAKENS TO VERBAL STIMULI. SHE CONTINUES WITH LEFT SIDED PARALYSIS TODAY . ON EXAMINATION, BILATERAL LUNGS ARE CLEAR TO AUSCULTATION. ABDOMEN IS ROUND, SOFT, AND NON- TENDER WITH NORMAL BOWEL SOUNDS NOTED IN ALL QUADRANTS. HER VITALS TODAY ARE 96.3-67-16-100%-125/58. LABS WERE OBTAINED. ABNORMAL LAB VALUES INCLUDE THE FOLLOWING: HGB 11.2, HCT 34.8, SODIUM 134, CHLORIDE 97, BUN 36, CREATININE 1.73 , GLUCOSE 180, AST 61, ALBUMIN 2.7. FAMILY IS IN AGREEMENT WITH PEG TUBE AND PLACMENT OF PAC. TODAY, WE WILL CONTINUE WITH HEPARIN DRIP, BUT HOLD PLAVIX DUE TO ANTICIPATED SURGERY. OTHERWISE, WE WILL FOLLOW UP WITH AM LABS AND CONTINUE TO MONITOR PATIENT. - Past Medical Family Social History Past Med/Fam/Surg Hx: No changes since H&P Allergies: Allergies No Known Drug Allergies Allergy (Verified 08/24/17 07:55) - Review of Systems ROS: No change since H&P - Vital Signs and I&O's Vital Signs: Temperature 96.9 F Pulse Rate [Bilateral Brachial 70 ] Respiratory Rate 17 Blood Pressure [Left Arm] 118/65 Blood Pressure 120/60 O2 Sat by Pulse Oximetry 100 Intake and Output: Intake & Output 04/15/18 04/16/18 04/17/18 04/18/18 11:59 11:59 11:59 11:59 Intake Total 1902 / 1902 1585 / 1585 2142 / 2142 Output Total 1150 / 1150 1700 / 1700 1275 / 1275 Balance 752 / 752 -115 / -115 867 / 867 - Physical Exam Oriented: Unable to test Eyes: Normal, Diplopia Ear: Normal Nose: Normal Throat: Normal Respiratory: Normal, Generalized Cardiovascular: Normal. negative: S3, S4, Murmur : Normal Auscultation: Bowel Sounds: Normal Tenderness: Normal Skin: Normal Musculoskeletal: Left, Arm, Leg, Motor Deficit, Sensory Deficit Psychiatric: Normal Mood Description: Calm Affect: Normal Speech Pattern: Unclear, Delayed - Laboratory and Diagnostics Result Diagrams: 04/17/18 05:34 04/17/18 05:34 Labs: Laboratory WBC 9.4 X10^3/uL (3.6-10.0) 04/17/18 05:34 RBC 4.43 X10^6/uL (3.5-5.4) 04/17/18 05:34 Hgb 11.0 g/dL (12.0-16.0) L 04/17/18 05:34 Hct 34.2 % (36.0-47.0) L 04/17/18 05:34 MCV 77.2 fL (80.0-100.0) L 04/17/18 05:34 MCH 24.8 pg (27.0-34.0) L 04/17/18 05:34 MCHC 32.1 g/dL (33.0-35.0) L 04/17/18 05:34 RDW 16.2 % (11.6-16.5) 04/17/18 05:34 Plt Count 267 X10^3/uL (150.0-450.0) 04/17/18 05:34 Plt Count Comment Adequate (ADEQUATE) 04/16/18 05:28 MPV 8.4 fL (7.4-11.0) 04/17/18 05:34 Neut % (Auto) 55.0 % (42.0-75.0) 04/17/18 05:34 Lymph % (Auto) 29.0 % (21.0-51.0) 04/17/18 05:34 [place] % (Auto) 11.7 % (0.0-13.0) 04/17/18 05:34 Eos % (Auto) 3.4 % (0.9-2.9) H 04/17/18 05:34 Baso % (Auto) 0.9 % (0.2-1.0) 04/17/18 05:34 Neut # (Auto) 5.2 x10^3/uL (2.2-4.8) H 04/17/18 05:34 Lymph # (Auto) 2.7 X10^3/uL (1.3-2.9) 04/17/18 05:34 [place] # (Auto) 1.1 x10^3/uL (0.3-0.8) H 04/17/18 05:34 Eos # (Auto) 0.3 x10^3/uL (0.0-0.2) H 04/17/18 05:34 Baso # (Auto) 0.1 X10^3/uL (0.0-0.1) 04/17/18 05:34 Absolute Nucleated RBC 0.1 /100WBC 04/17/18 05:34 Plt Morphology Comment Normal (NORMAL) 04/16/18 05:28 RBC Morphology Normal (NORMAL) 04/16/18 05:28 Hypochromasia Slight A 04/15/18 04:55 Anisocytosis Slight A 04/13/18 03:22 Microcytosis Slight A 04/14/18 05:40 Stomatocytes Slight A 04/13/18 03:22 APTT 32.6 SECONDS (22.9-36.5) 04/17/18 05:34 PTT Comment - 04/17/18 05:34 Sodium 133 mmol/L (136-145) L 04/17/18 05:34 Corrected Sodium 134 mmol/L (136-145) L 04/17/18 05:34 Potassium 3.9 mmol/L (3.5-5.1) 04/17/18 05:34 Chloride 96 mmol/L (98-107) L 04/17/18 05:34 Carbon Dioxide 26.7 mmol/L (21-32) 04/17/18 05:34 BUN 49 mg/dL (7-18) H 04/17/18 05:34 Creatinine 2.13 mg/dL (0.55-1.02) H 04/17/18 05:34 Est GFR (MDRD) Af Amer 30 (>60) L 04/17/18 05:34 Est GFR (MDRD) Non-Af 25 (>60) L 04/17/18 05:34 Glucose 155 mg/dL (65-99) H 04/17/18 05:34 POC Glucose (mg/dL) 187 mg/dL (65-99) H 04/17/18 11:00 Calcium 10.3 mg/dL (8.5-10.1) H 04/17/18 05:34 Corrected Calcium 11.3 mg/dL (8.5-10.1) H 04/17/18 05:34 Magnesium 1.9 mg/dL (1.7-2.9) 04/09/18 14:31 Total Bilirubin 0.30 mg/dL (0.2-1.0) 04/17/18 05:34 AST 58 Units/L (15-37) H 04/17/18 05:34 ALT 70 Units/L (12-78) 04/17/18 05:34 Alkaline Phosphatase 73 Units/L (46-116) 04/17/18 05:34 Total Protein 7.9 g/dL (6.4-8.2) 04/17/18 05:34 Albumin 2.8 g/dL (3.4-5.0) L 04/17/18 05:34 Globulin 5.1 g/dL (2.5-4.5) H 04/17/18 05:34 Albumin/Globulin Ratio 0.5 Ratio (1.1-2.1) L 04/17/18 05:34 Specimen Type Catherized urine 04/17/18 07:10 Urine Color Yellow (YELLOW) 04/17/18 07:10 Urine Appearance Hazy (CLEAR) 04/17/18 07:10 Urine pH 5.0 (5.0 - 8.0) 04/17/18 07:10 Ur Specific [place] 1.015 (1.000-1.030) 04/17/18 07:10 Urine Protein 2+ (NEGATIVE) 04/17/18 07:10 Urine Glucose (UA) Negative (NEGATIVE) 04/17/18 07:10 Urine Ketones Negative (NEGATIVE) 04/17/18 07:10 Urine Occult Blood 3+ (NEGATIVE) 04/17/18 07:10 Urine Nitrite Negative (NEGATIVE) 04/17/18 07:10 Urine Bilirubin Negative (NEGATIVE) 04/17/18 07:10 Urine Urobilinogen Normal (NORMAL) 04/17/18 07:10 Ur Leukocyte Esterase 3+ (NEGATIVE) 04/17/18 07:10 Urine RBC 10-20 /HPF (NONE SEEN) 04/17/18 07:10 Urine WBC 10-20 /HPF (NONE SEEN) 04/17/18 07:10 Ur Squamous Epith Cells Rare /HPF (NEGATIVE) 04/17/18 07:10 Amorphous Sediment 2+ /HPF (NEGATIVE) 04/17/18 07:10 Urine Bacteria Trace /HPF (NEGATIVE) 04/17/18 07:10 Ur Culture Indicated? Yes/culture set up 04/17/18 07:10 - Plan (1) Acute CVA (cerebrovascular accident) Status: Acute Plan: HEPARIN DRIP, PHYSICAL THERAPY, OCCUPATIONAL THERAPY, SPEECH THERAPY, SUPPLEMENTAL OXYGEN, CONTINUE TO MONITOR (2) Left-sided weakness Status: Acute Plan: PHYSICAL THERAPY, CONTINUE TO MONITOR. (3) Hypertension Status: Acute Qualifiers: Hypertension type: essential hypertension Qualified Code(s): I10 - Essential (primary) hypertension Plan: CONTINUE NORVASC, CONTINUE COREG, CATAPRES PATCH WEEKLY, LABETALOL PROTOCOL, CONTINUE DIOVAN, CONTINUE TO MONITOR (4) Anemia Status: Acute Qualifiers: Anemia type: iron deficiency Iron deficiency anemia type: unspecified iron deficiency Qualified Code(s): D50.9 - Iron deficiency anemia, unspecified Plan: CONTINUE HEMOCYTE, CONTINUE TO MONITOR (5) Congestive heart failure Status: Acute Qualifiers: Heart failure type: unspecified Heart failure chronicity: chronic Qualified Code(s): I50.9 - Heart failure, unspecified Plan: CONTINUE DIOVAN, CONTINUE ALDACTONE, CONTINUE COREG, CONTINUE TO MONITOR
[2018-04-17] MEDS: SNACK - Diabetic Appropriate PO SCH (19:36)
[2018-04-17] MEDS: DIOVAN TAB 160 MG PO SCH (20:04)
[2018-04-17] MEDS: NORVASC TAB 10 MG PO SCH (20:05)
[2018-04-18] MEDS: NS 1000 ML 1,000 ML IV SCH ×4 (04:22→22:32)
[2018-04-18 05:51] LABS: BASOPHILS # (AUTO) 0.1 X10^3/uL (0.0-0.1); BASOPHILS % (AUTO) 0.9 % (0.2-1.0); EOSINOPHILS # (AUTO) 0.2 x10^3/uL (0.0-0.2); EOSINOPHILS % (AUTO) 1.8 % (0.9-2.9); HEMATOCRIT 33.5 % (36.0-47.0); HEMOGLOBIN 10.8 g/dL (12.0-16.0); LYMPHOCYTES # (AUTO) 2.3 X10^3/uL (1.3-2.9); LYMPHOCYTES % (AUTO) 23.9 % (21.0-51.0); MEAN CORPUSCULAR HEMOGLOBIN 24.8 pg (27.0-34.0); MEAN CORPUSCULAR HGB CONC 32.2 g/dL (33.0-35.0); MEAN PLATELET VOLUME 8.7 fL (7.4-11.0); MONOCYTES # (AUTO) 1.2 x10^3/uL (0.3-0.8); MONOCYTES % (AUTO) 12.3 % (0.0-13.0); NEUTROPHILS % (AUTO) 61.1 % (42.0-75.0); PLATELET COUNT 234 X10^3/uL (150.0-450.0); RED BLOOD COUNT 4.35 X10^6/uL (3.5-5.4); RED CELL DISTRIBUTION WIDTH 16.4 % (11.6-16.5); WHITE BLOOD COUNT 9.8 X10^3/uL (3.6-10.0)
[2018-04-18 05:55] LABS: ALBUMIN 2.6 g/dL (3.4-5.0); CARBON DIOXIDE 25.3 mmol/L (21-32); COR CA(FOR HYPOALB) 11.1 mg/dL (8.5-10.1); CREATININE 1.9 mg/dL (0.55-1.02); TOTAL PROTEIN 7.6 g/dL (6.4-8.2)
[2018-04-18 05:59] LABS: HYPOCHROMASIA SLIGHT; PLATELET MORPHOLOGY COMMENT NORMAL (NORMAL)
[2018-04-18] MEDS: COREG TAB 25 MG PO SCH ×2 (08:12→20:07)
[2018-04-18] MEDS: ALDACTONE TAB 25 MG PO SCH (08:12)
[2018-04-18] MEDS: HEMOCYTE-PLUS PO SCH ×2 (08:13→20:28)
[2018-04-18] MEDS: HYDROCHLOROTHIAZIDE 25 MG TAB PO SCH (08:13)
[2018-04-18] MEDS: CATAPRES-TTS-2 TD SCH (09:12)
[2018-04-18] MEDS: ROCEPHIN VIAL 1 GRAM 1 G in NS 100 ML IV + SPIKE MINIBAG* 100 ML IV SCH (09:13)
[2018-04-18] MEDS ORDERED: XYLOCAINE 1 % (PLAIN) ONE (10:53)
[2018-04-18] MEDS ORDERED: BACITRACIN VIAL ONE (10:53)
[2018-04-18] MEDS ORDERED: FENTANYL INJ 100 mcg ONE (11:39)
[2018-04-18] MEDS ORDERED: NS IRRIGATION 1000 ML 1,000 ML with BACITRACIN VIAL 50,000 UNIT IR ONE ×2 (12:35)
--- NOTE | 2018-04-18 13:59 | RAD ---
History: Status post Port-A-Cath placement Study: Portable AP chest Comparison: April 09 Findings: There is a new right subclavian Port-A-Cath with the tip in the upper SVC. There is no pneu mothorax or pleural effusion. The heart size is normal. The lungs are clear. Impression: Satisfactory Port-A-Cath placement and portable chest Reported By:
--- NOTE | 2018-04-18 15:09 | OR.GENERIC ---
Post-Op Note Generic - Post-Op Note Operative Report: Sherrie cath placement Rt side via cut down on the Cephalic vein . did well without complication . EBL 20 cc chest xray showed good placement in the SVC
[2018-04-18] MEDS ORDERED: EPHEDRINE SULFATE INJ ONE (15:29)
[2018-04-18] MEDS ORDERED: VERSED ONE (15:29)
[2018-04-18] MEDS: SNACK - Diabetic Appropriate PO SCH (19:32)
[2018-04-18] MEDS: DIOVAN TAB 160 MG PO SCH (20:07)
[2018-04-18] MEDS: NORVASC TAB 10 MG PO SCH (20:07)
[2018-04-18] MEDS: MORPHINE SULFATE INJ 2 MG INJ IVP PRN (21:25)
--- NOTE | 2018-04-18 21:51 | PCM.PROG ---
Progress Note - Progress Note for Day of Date of Exam: 04/17/18 - Subjective Subjective: IS BEING TREATED FOR AN ACUTE RIGHT SIDED CVA. TODAY, SHE IS LYING IN BED WITH EYES CLOSED ON MORNING ROUNDS. SHE AWAKENS TO VERBAL STIMULI. SHE CONTINUES WITH LEFT SIDED PARALYSIS. ON EXAMINATION, BILATERAL LUNGS ARE CLEAR TO AUSCULTATION. ABDOMEN IS ROUND, SOFT, AND NON-TENDER WITH NORMAL BOWEL SOUNDS NOTED IN ALL QUADRANTS. HER VITALS TODAY ARE 96.9-66-15-100% -121/70. LABS WERE OBTAINED. ABNORMAL LAB VALUES INCLUDE THE FOLLOWING: HGB 11.0 , HCT 34.2, SODIUM 133, CHLORIDE 96, BUN 49, CREATININE 2.13, GLUCOSE 155, CALCIUM 10.3, AST 58, ALBUMIN 2.8. A URINALYSIS WAS OBTAINED TODAY AND REVEALED WBC 10-20, RBC 10-20, LEUKOCYTES 3+, BACTERIA TRACE. A URINE CULTURE WAS SET UP. SHE IS SCHEDULED FOR PLACEMENT OF PEG TUBE TODAY AND PORT A CATH TOMORROW. WE WILL CONTINUE WITH CURRENT PLAN OF CARE TODAY. OTHERWISE, WE WILL FOLLOW UP WITH AM LABS AND CONTINUE TO MONITOR PATIENT. - Past Medical Family Social History Past Med/Fam/Surg Hx: No changes since H&P Allergies: Allergies No Known Drug Allergies Allergy (Verified 08/24/17 07:55) - Review of Systems ROS: No change since H&P - Vital Signs and I&O's Vital Signs: Temperature 97.5 F Pulse Rate [Bilateral Brachial 85 ] Respiratory Rate 20 Blood Pressure [Left Arm] 133/76 Blood Pressure 120/60 O2 Sat by Pulse Oximetry 100 Intake and Output: Intake & Output 04/16/18 04/17/18 04/18/18 04/19/18 11:59 11:59 11:59 11:59 Intake Total 1585 / 1585 2142 / 2142 1699 / 1699 625 / 625 Output Total 1700 / 1700 1275 / 1275 1485 / 1485 675 / 675 Balance -115 / -115 867 / 867 214 / 214 -50 / -50 - Physical Exam Oriented: Unable to test Eyes: Normal, Diplopia Ear: Normal Nose: Normal Throat: Normal Respiratory: Normal, Generalized Cardiovascular: Normal. negative: S3, S4, Murmur : Normal Auscultation: Bowel Sounds: Normal Tenderness: Normal Skin: Normal Musculoskeletal: Left, Arm, Leg, Motor Deficit, Sensory Deficit Psychiatric: Normal Mood Description: Calm Affect: Normal Speech Pattern: Unclear, Delayed - Laboratory and Diagnostics Result Diagrams: 04/18/18 04:28 04/18/18 04:28 Labs: 04/17/18 07:10 Urine,Catheterized Urine Culture - Preliminary Laboratory WBC 9.8 X10^3/uL (3.6-10.0) 04/18/18 04:28 RBC 4.35 X10^6/uL (3.5-5.4) 04/18/18 04:28 Hgb 10.8 g/dL (12.0-16.0) L 04/18/18 04:28 Hct 33.5 % (36.0-47.0) L 04/18/18 04: MCV 77.0 fL (80.0-100.0) L 04/18/18 04:28 MCH 24.8 pg (27.0-34.0) L 04/18/18 04:28 MCHC 32.2 g/dL (33.0-35.0) L 04/18/18 04:28 RDW 16.4 % (11.6-16.5) 04/18/18 04:28 Plt Count 234 X10^3/uL (150.0-450.0) 04/18/18 04:28 Plt Count Comment Adequate (ADEQUATE) 04/18/18 04:28 MPV 8.7 fL (7.4-11.0) 04/18/18 04:28 Neut % (Auto) 61.1 % (42.0-75.0) 04/18/18 04:28 Lymph % (Auto) 23.9 % (21.0-51.0) 04/18/18 04:28 [place] % (Auto) 12.3 % (0.0-13.0) 04/18/18 04:28 Eos % (Auto) 1.8 % (0.9-2.9) 04/18/18 04:28 Baso % (Auto) 0.9 % (0.2-1.0) 04/18/18 04:28 Neut # (Auto) 6.0 x10^3/uL (2.2-4.8) H 04/18/18 04:28 Lymph # (Auto) 2.3 X10^3/uL (1.3-2.9) 04/18/18 04:28 [place] # (Auto) 1.2 x10^3/uL (0.3-0.8) H 04/18/18 04:28 Eos # (Auto) 0.2 x10^3/uL (0.0-0.2) 04/18/18 04:28 Baso # (Auto) 0.1 X10^3/uL (0.0-0.1) 04/18/18 04:28 Absolute Nucleated RBC 0.1 /100WBC 04/18/18 04:28 Plt Morphology Comment Normal (NORMAL) 04/18/18 04:28 RBC Morphology Abnormal (NORMAL) A 04/18/18 04:28 Hypochromasia Slight A 04/18/18 04:28 Anisocytosis Slight A 04/13/18 03:22 Microcytosis Slight A 04/14/18 05:40 Stomatocytes Slight A 04/13/18 03:22 APTT 32.6 SECONDS (22.9-36.5) 04/17/18 05:34 PTT Comment - 04/17/18 05:34 Sodium 134 mmol/L (136-145) L 04/18/18 04:28 Corrected Sodium 135 mmol/L (136-145) L 04/18/18 04:28 Potassium 4.4 mmol/L (3.5-5.1) 04/18/18 04:28 Chloride 99 mmol/L (98-107) 04/18/18 04:28 Carbon Dioxide 25.3 mmol/L (21-32) 04/18/18 04:28 BUN 48 mg/dL (7-18) H 04/18/18 04:28 Creatinine 1.90 mg/dL (0.55-1.02) H 04/18/18 04:28 Est GFR (MDRD) Af Amer 35 (>60) L 04/18/18 04:28 Est GFR (MDRD) Non-Af 29 (>60) L 04/18/18 04:28 Glucose 128 mg/dL (65-99) H 04/18/18 04:28 POC Glucose (mg/dL) 125 mg/dL (65-99) H 04/18/18 21:18 Calcium 10.0 mg/dL (8.5-10.1) 04/18/18 04:28 Corrected Calcium 11.1 mg/dL (8.5-10.1) H 04/18/18 04:28 Magnesium 1.9 mg/dL (1.7-2.9) 04/09/18 14:31 Total Bilirubin 0.30 mg/dL (0.2-1.0) 04/18/18 04:28 AST 56 Units/L (15-37) H 04/18/18 04:28 ALT 71 Units/L (12-78) 04/18/18 04:28 Alkaline Phosphatase 72 Units/L (46-116) 04/18/18 04:28 Total Protein 7.6 g/dL (6.4-8.2) 04/18/18 04:28 Albumin 2.6 g/dL (3.4-5.0) L 04/18/18 04:28 Globulin 5.0 g/dL (2.5-4.5) H 04/18/18 04:28 Albumin/Globulin Ratio 0.5 Ratio (1.1-2.1) L 04/18/18 04:28 Specimen Type Catherized urine 04/17/18 07:10 Urine Color Yellow (YELLOW) 04/17/18 07:10 Urine Appearance Hazy (CLEAR) 04/17/18 07:10 Urine pH 5.0 (5.0 - 8.0) 04/17/18 07:10 Ur Specific [place] 1.015 (1.000-1.030) 04/17/18 07:10 Urine Protein 2+ (NEGATIVE) 04/17/18 07:10 Urine Glucose (UA) Negative (NEGATIVE) 04/17/18 07:10 Urine Ketones Negative (NEGATIVE) 04/17/18 07:10 Urine Occult Blood 3+ (NEGATIVE) 04/17/18 07:10 Urine Nitrite Negative (NEGATIVE) 04/17/18 07:10 Urine Bilirubin Negative (NEGATIVE) 04/17/18 07:10 Urine Urobilinogen Normal (NORMAL) 04/17/18 07:10 Ur Leukocyte Esterase 3+ (NEGATIVE) 04/17/18 07:10 Urine RBC 10-20 /HPF (NONE SEEN) 04/17/18 07:10 Urine WBC 10-20 /HPF (NONE SEEN) 04/17/18 07:10 Ur Squamous Epith Cells Rare /HPF (NEGATIVE) 04/17/18 07:10 Amorphous Sediment 2+ /HPF (NEGATIVE) 04/17/18 07:10 Urine Bacteria Trace /HPF (NEGATIVE) 04/17/18 07:10 Ur Culture Indicated? Yes/culture set up 04/17/18 07:10 - Plan (1) Acute CVA (cerebrovascular accident) Status: Acute Plan: HEPARIN DRIP, PHYSICAL THERAPY, OCCUPATIONAL THERAPY, SPEECH THERAPY, SUPPLEMENTAL OXYGEN, CONTINUE TO MONITOR (2) Left-sided weakness Status: Acute Plan: PHYSICAL THERAPY, CONTINUE TO MONITOR. (3) Hypertension Status: Acute Qualifiers: Hypertension type: essential hypertension Qualified Code(s): I10 - Essential (primary) hypertension Plan: CONTINUE NORVASC, CONTINUE COREG, CATAPRES PATCH WEEKLY, LABETALOL PROTOCOL, CONTINUE DIOVAN, CONTINUE TO MONITOR (4) Anemia Status: Acute Qualifiers: Anemia type: iron deficiency Iron deficiency anemia type: unspecified iron deficiency Qualified Code(s): D50.9 - Iron deficiency anemia, unspecified Plan: CONTINUE HEMOCYTE, CONTINUE TO MONITOR (5) Congestive heart failure Status: Acute Qualifiers: Heart failure type: unspecified Heart failure chronicity: chronic Qualified Code(s): I50.9 - Heart failure, unspecified Plan: CONTINUE DIOVAN, CONTINUE ALDACTONE, CONTINUE COREG, CONTINUE TO MONITOR (6) Urinary tract infection Status: Acute Qualifiers: Urinary tract infection type: acute cystitis Hematuria presence: with hematuria Qualified Code(s): N30.01 - Acute cystitis with hematuria Plan: ROCEPHIN 1GM IV DAILY, CONTINUE TO MONITOR
[2018-04-19 05:19] LABS: BASOPHILS # (AUTO) 0.1 X10^3/uL (0.0-0.1); BASOPHILS % (AUTO) 0.7 % (0.2-1.0); EOSINOPHILS # (AUTO) 0.3 x10^3/uL (0.0-0.2); EOSINOPHILS % (AUTO) 3.8 % (0.9-2.9); HEMATOCRIT 31.9 % (36.0-47.0); HEMOGLOBIN 10.1 g/dL (12.0-16.0); LYMPHOCYTES # (AUTO) 2.2 X10^3/uL (1.3-2.9); LYMPHOCYTES % (AUTO) 26.2 % (21.0-51.0); MEAN CORPUSCULAR HEMOGLOBIN 24.7 pg (27.0-34.0); MEAN CORPUSCULAR HGB CONC 31.6 g/dL (33.0-35.0); MEAN CORPUSCULAR VOLUME 78.2 fL (80.0-100.0); MEAN PLATELET VOLUME 8.6 fL (7.4-11.0); MONOCYTES # (AUTO) 1.1 x10^3/uL (0.3-0.8); MONOCYTES % (AUTO) 12.9 % (0.0-13.0); NEUTROPHILS # (AUTO) 4.7 x10^3/uL (2.2-4.8); NEUTROPHILS % (AUTO) 56.4 % (42.0-75.0); PLATELET COUNT 216 X10^3/uL (150.0-450.0); RED BLOOD COUNT 4.08 X10^6/uL (3.5-5.4); RED CELL DISTRIBUTION WIDTH 16.2 % (11.6-16.5); WHITE BLOOD COUNT 8.4 X10^3/uL (3.6-10.0)
[2018-04-19 05:33] LABS: ALBUMIN 2.4 g/dL (3.4-5.0); CALCIUM 10.1 mg/dL (8.5-10.1); CARBON DIOXIDE 27.6 mmol/L (21-32); COR CA(FOR HYPOALB) 11.4 mg/dL (8.5-10.1); CREATININE 1.51 mg/dL (0.55-1.02); TOTAL PROTEIN 7.1 g/dL (6.4-8.2)
[2018-04-19 06:03] LABS: HYPOCHROMASIA SLIGHT; PLATELET MORPHOLOGY COMMENT NORMAL (NORMAL)
--- NOTE | 2018-04-19 08:20 | PCM.PROG ---
Progress Note - Progress Note for Day of Date of Exam: 04/18/18 - Subjective Subjective: IS BEING TREATED FOR AN ACUTE RIGHT SIDED CVA. TODAY, SHE IS LYING IN BED WITH EYES CLOSED ON MORNING ROUNDS. SHE AWAKENS TO VERBAL STIMULI. SHE CONTINUES WITH LEFT SIDED PARALYSIS. ON EXAMINATION, BILATERAL LUNGS ARE CLEAR TO AUSCULTATION. ABDOMEN IS ROUND, SOFT, AND NON-TENDER WITH NORMAL BOWEL SOUNDS NOTED IN ALL QUADRANTS. HER VITALS TODAY ARE 996.9-73-18-100 %-100/62. LABS WERE OBTAINED. ABNORMAL LAB VALUES INCLUDE THE FOLLOWING: HGB 10.8, HCT 33.5, BUN 48, CREATININE 1.51, GLUCOSE 141, AST 49, ALBUMIN 2.4. A URINE CULTURE IS PENDING. SHE IS SCHEDULED FOR PLACEMENT OF PORT A CATH TODAY. A PEG TUBE WAS INSERTED YESTERDAY. SHOULD START TUBE FEEDINGS TODAY. SHE HAS BEEN ACCEPTED AT A [facility] IN [place], [place] AFTER DISCHARGE. OTHERWISE, WE WILL FOLLOW UP WITH AM LABS AND CONTINUE TO MONITOR PATIENT. - Past Medical Family Social History Past Med/Fam/Surg Hx: No changes since H&P Allergies: Allergies No Known Drug Allergies Allergy (Verified 08/24/17 07:55) - Review of Systems ROS: No change since H&P - Vital Signs and I&O's Vital Signs: Temperature 97.2 F Pulse Rate [Bilateral Brachial 77 ] Respiratory Rate 18 Blood Pressure [Left Arm] 116/66 Blood Pressure 120/60 O2 Sat by Pulse Oximetry 100 Intake and Output: Intake & Output 04/16/18 04/17/18 04/18/18 04/19/18 11:59 11:59 11:59 11:59 Intake Total 1585 / 1585 2142 / 2142 1699 / 1699 1695 / 1695 Output Total 1700 / 1700 1275 / 1275 1485 / 1485 1625 / 1625 Balance -115 / -115 867 / 867 214 / 214 70 / 70 - Physical Exam Oriented: Unable to test Eyes: Normal, Diplopia Ear: Normal Nose: Normal Throat: Normal Respiratory: Normal, Generalized Cardiovascular: Normal. negative: S3, S4, Murmur : Normal Auscultation: Bowel Sounds: Normal Tenderness: Normal Skin: Normal Musculoskeletal: Left, Arm, Leg, Motor Deficit, Sensory Deficit Psychiatric: Normal Mood Description: Calm Affect: Normal Speech Pattern: Unclear, Delayed - Laboratory and Diagnostics Result Diagrams: 04/19/18 04:30 04/19/18 04:30 Labs: 04/17/18 07:10 Urine,Catheterized Urine Culture - Final Escherichia Coli Laboratory WBC 8.4 X10^3/uL (3.6-10.0) 04/19/18 04:30 RBC 4.08 X10^6/uL (3.5-5.4) 04/19/18 04:30 Hgb 10.1 g/dL (12.0-16.0) L 04/19/18 04:30 Hct 31.9 % (36.0-47.0) L 04/19/18 04:30 MCV 78.2 fL (80.0-100.0) L 04/19/18 04:30 MCH 24.7 pg (27.0-34.0) L 04/19/18 04:30 MCHC 31.6 g/dL (33.0-35.0) L 04/19/18 04:30 RDW 16.2 % (11.6-16.5) 04/19/18 04:30 Plt Count 216 X10^3/uL (150.0-450.0) 04/19/18 04:30 Plt Count Comment Adequate (ADEQUATE) 04/19/18 04:30 MPV 8.6 fL (7.4-11.0) 04/19/18 04:30 Neut % (Auto) 56.4 % (42.0-75.0) 04/19/18 04:30 Lymph % (Auto) 26.2 % (21.0-51.0) 04/19/18 04:30 [place] % (Auto) 12.9 % (0.0-13.0) 04/19/18 04:30 Eos % (Auto) 3.8 % (0.9-2.9) H 04/19/18 04:30 Baso % (Auto) 0.7 % (0.2-1.0) 04/19/18 04:30 Neut # (Auto) 4.7 x10^3/uL (2.2-4.8) 04/19/18 04:30 Lymph # (Auto) 2.2 X10^3/uL (1.3-2.9) 04/19/18 04:30 [place] # (Auto) 1.1 x10^3/uL (0.3-0.8) H 04/19/18 04:30 Eos # (Auto) 0.3 x10^3/uL (0.0-0.2) H 04/19/18 04:30 Baso # (Auto) 0.1 X10^3/uL (0.0-0.1) 04/19/18 04:30 Absolute Nucleated RBC 0.0 /100WBC 04/19/18 04:30 Plt Morphology Comment Normal (NORMAL) 04/19/18 04:30 RBC Morphology Abnormal (NORMAL) A 04/19/18 04:30 Hypochromasia Slight A 04/19/18 04:30 Anisocytosis Slight A 04/13/18 03:22 Microcytosis Slight A 04/14/18 05:40 Stomatocytes Slight A 04/13/18 03:22 APTT 32.6 SECONDS (22.9-36.5) 04/17/18 05:34 PTT Comment - 04/17/18 05:34 Sodium 137 mmol/L (136-145) 04/19/18 04:30 Corrected Sodium 138 mmol/L (136-145) 04/19/18 04:30 Potassium 4.6 mmol/L (3.5-5.1) 04/19/18 04:30 Chloride 102 mmol/L (98-107) 04/19/18 04:30 Carbon Dioxide 27.6 mmol/L (21-32) 04/19/18 04:30 BUN 48 mg/dL (7-18) H 04/19/18 04:30 Creatinine 1.51 mg/dL (0.55-1.02) H 04/19/18 04:30 Est GFR (MDRD) Af Amer 45 (>60) L 04/19/18 04:30 Est GFR (MDRD) Non-Af 37 (>60) L 04/19/18 04:30 Glucose 141 mg/dL (65-99) H 04/19/18 04:30 POC Glucose (mg/dL) 156 mg/dL (65-99) H 04/19/18 05:48 Calcium 10.1 mg/dL (8.5-10.1) 04/19/18 04:30 Corrected Calcium 11.4 mg/dL (8.5-10.1) H 04/19/18 04:30 Magnesium 2.3 mg/dL (1.7-2.9) 04/19/18 04:30 Total Bilirubin 0.20 mg/dL (0.2-1.0) 04/19/18 04:30 AST 49 Units/L (15-37) H 04/19/18 04:30 ALT 63 Units/L (12-78) 04/19/18 04:30 Alkaline Phosphatase 64 Units/L (46-116) 04/19/18 04:30 Total Protein 7.1 g/dL (6.4-8.2) 04/19/18 04:30 Albumin 2.4 g/dL (3.4-5.0) L 04/19/18 04:30 Globulin 4.7 g/dL (2.5-4.5) H 04/19/18 04:30 Albumin/Globulin Ratio 0.5 Ratio (1.1-2.1) L 04/19/18 04:30 Specimen Type Catherized urine 04/17/18 07:10 Urine Color Yellow (YELLOW) 04/17/18 07:10 Urine Appearance Hazy (CLEAR) 04/17/18 07:10 Urine pH 5.0 (5.0 - 8.0) 04/17/18 07:10 Ur Specific [place] 1.015 (1.000-1.030) 04/17/18 07:10 Urine Protein 2+ (NEGATIVE) 04/17/18 07:10 Urine Glucose (UA) Negative (NEGATIVE) 04/17/18 07:10 Urine Ketones Negative (NEGATIVE) 04/17/18 07:10 Urine Occult Blood 3+ (NEGATIVE) 04/17/18 07:10 Urine Nitrite Negative (NEGATIVE) 04/17/18 07:10 Urine Bilirubin Negative (NEGATIVE) 04/17/18 07:10 Urine Urobilinogen Normal (NORMAL) 04/17/18 07:10 Ur Leukocyte Esterase 3+ (NEGATIVE) 04/17/18 07:10 Urine RBC 10-20 /HPF (NONE SEEN) 04/17/18 07:10 Urine WBC 10-20 /HPF (NONE SEEN) 04/17/18 07:10 Ur Squamous Epith Cells Rare /HPF (NEGATIVE) 04/17/18 07:10 Amorphous Sediment 2+ /HPF (NEGATIVE) 04/17/18 07:10 Urine Bacteria Trace /HPF (NEGATIVE) 04/17/18 07:10 Ur Culture Indicated? Yes/culture set up 04/17/18 07:10 - Plan (1) Acute CVA (cerebrovascular accident) Status: Acute Plan: HEPARIN DRIP, PHYSICAL THERAPY, OCCUPATIONAL THERAPY, SPEECH THERAPY, SUPPLEMENTAL OXYGEN, CONTINUE TO MONITOR (2) Left-sided weakness Status: Acute Plan: PHYSICAL THERAPY, CONTINUE TO MONITOR. (3) Urinary tract infection Status: Acute Qualifiers: Urinary tract infection type: acute cystitis Hematuria presence: with hematuria Qualified Code(s): N30.01 - Acute cystitis with hematuria Plan: ROCEPHIN 1GM IV DAILY, CONTINUE TO MONITOR (4) Hypertension Status: Chronic Qualifiers: Hypertension type: essential hypertension Qualified Code(s): I10 - Essential (primary) hypertension Plan: CONTINUE NORVASC, CONTINUE COREG, CATAPRES PATCH WEEKLY, LABETALOL PROTOCOL, CONTINUE DIOVAN, CONTINUE TO MONITOR (5) Anemia Status: Chronic Qualifiers: Anemia type: iron deficiency Iron deficiency anemia type: unspecified iron deficiency Qualified Code(s): D50.9 - Iron deficiency anemia, unspecified Plan: CONTINUE HEMOCYTE, CONTINUE TO MONITOR (6) Congestive heart failure Status: Chronic Qualifiers: Heart failure type: unspecified Heart failure chronicity: chronic Qualified Code(s): I50.9 - Heart failure, unspecified Plan: CONTINUE DIOVAN, CONTINUE ALDACTONE, CONTINUE COREG, CONTINUE TO MONITOR
[2018-04-19] MEDS: COREG TAB 25 MG PO SCH (09:00)
[2018-04-19] MEDS: ROCEPHIN VIAL 1 GRAM 1 G in NS 100 ML IV + SPIKE MINIBAG* 100 ML IV SCH (09:00)
[2018-04-19] MEDS: MORPHINE SULFATE INJ 2 MG INJ IVP PRN (11:07)
[2018-04-19] MEDS: HYDROCHLOROTHIAZIDE 25 MG TAB PO SCH (11:08)
[2018-04-19] MEDS: HEMOCYTE-PLUS PO SCH (11:09)
[2018-04-19] MEDS: ALDACTONE TAB 25 MG PO SCH (11:09)
[2018-04-19] MEDS: NS 1000 ML 1,000 ML IV SCH (15:57)
[2018-04-19 16:44] VITALS: BP 113/65
--- NOTE | 2018-05-09 00:42 | DR.CARTERD ---
- Discharge Summary for: Discharge Summary for Date of:: 04/19/18 - Admission Date Date of Admission: 04/09/18 - Admission Diagnoses Admission Diagnosis: (1) Suspected cerebrovascular accident (CVA) (2) Left-sided weakness - Discharge Date Discharge Date: 04/19/18 - Discharge Diagnoses Discharge Diagnosis: (1) Acute CVA (cerebrovascular accident) (2) Left-sided weakness (3) Urinary tract infection (4) Hypertension (5) Anemia (6) Congestive heart failure - Hospital Course Hospital Course: Day one, Ms. Martell presented to the hospital as a direct admission after being seen in the office with reports of weakness. Patients family reported symptoms started three days prior. Family reported patient fell three days prior and was taken to the [facility] emergency room and discharged home with a diagnosis of TIA. On arrival to the office patient noted in wheelchair and non-verbal and appeared to be obtunded. Patient noted without any movement to left side with family reporting incontinence. Family reported patient had a previous stroke however her only sustained deficit after that stroke with speech difficulties. Patient admitted to the hospital as observation for further evaluation and treatment. 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 A brain CT obtained on arrival revealed no acute pathology. Day two, Ms. Martell was admitted for a suspected right sided CVA. She was alert , lying in bed on morning rounds. She was noted with delayed, slurred speech and had difficulty answering questions. On examination, heart was regular in rate and rhythm. Bilateral lungs were clear to auscultation. Abdomen was round, soft, and non-tender with normal bowel sounds noted in all quadrants. She was noted with severe left sided weakness. Abnormal lab values included the following: Hgb 9.8, Hct 31.1, chloride 108, BUN 27, creatinine 1.78, AST 92, albumin 2.4. Throughout the night, her blood glucose had been in the 60s-70s. She was diabetic and NPO at that time. A brain MRI was obtained which revealed acute ischemic event involving the MAXX territory on the right. We started her on the labetalol protocol for blood pressure control and d5w. We continued to monitor patient. Day three, We continued treatment for CVA. She continued with delayed, slurred speech, and severe left sided weakness. Blood pressure was 171/89. Patient was evaluated by Speech Therapy and was found to be safe to eat a pureed diet with nectar thickened liquids as well as taking her pills crushed. We restarted Plavix and other home medications and also started Clonidine 0.2mg TD patch. Patient started on a Heparin drip at 12units/kg/hr and titrated based on PTT. Carotid Ultrasound: Mild bilateral carotid intimal thickening but without evidence for high-grade stenosis or occlusion of the carotid arteries, based on Doppler velocity criteria. Appropriate, ante-grade, vertebral arterial flow. Peak right ICA velocity: 87 centimeter/seconds. Peak right CCA velocity: 58 centimeter/second. Peak left ICA velocity: 55 centimeter/seconds. Peak left CCA velocity: 53 centimeters/second. Right ICA to CCA ratio: 1.5. Left ICA to CCA ratio: 1.0. ECHO: (04/11/18) LV ejection Fx 73%; Aortic Valve Thickened; Mitral Valve Regurgitation; Left Atrium Mass/Clot; Tricuspid Valve Tricuspid Insufficiency 151cM/sec. We continued to monitor. Day four, Patient noted with continued left sided paralysis. Speech remained aphasic. A carotid ultrasound obtained yesterday revealed mild bilateral carotid intimal thickening but without evidence for high-grade stenosis or occlusion of the carotid arteries. Patient continued on Heparin drip. Physical , occupational and speech therapy worked with patient daily and suggested fci placement for continued therapy once stable for discharge. Abnormal Labs: Hgb 10.9, Hct 34.2, MCV 77.5, MCH 24.7, MCHC 31.8, APTT 59.9, Sodium 133, Corrected Sodium 135, Chloride 97, BUN 19, Creatinine 1.32, GFR af 53, GFR non 44, Glucose 188, Corrected Calcium 11.0, AST 61, Albumin 2.6, Globulin 5.2, A/G ratio 0.5. Day five, Ms. Martell continued treatment for an acute right sided CVA. She was lying in bed with eyes closed on morning rounds. She opened eyes to verbal stimuli, but was aphasic and was unable to follow commands. On examination, bilateral lungs were clear to auscultation. Abdomen was round, soft, and non- tender with normal bowel sounds noted in all quadrants. Abnormal lab values included the following: Hgb 11.1, Hct 34.7, BUN 21, creatinine 1.59, glucose 169 , AST 45, albumin 2.7. Staff continued to report that they were unable to get patient to take her medications or eat. We continued with heparin drip. 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 Staff reported they were unable to get patient to take medications crushed in applesauce. We continued with Heparin drip and monitored. Day seven, She was lying in bed with eyes closed on morning rounds. She continued to open eyes to verbal stimuli, but did not move left side of body. She did move right arm on command. On examination, bilateral lungs were clear to auscultation. Abdomen was round, soft, and non-tender with normal bowel sounds noted in all quadrants. Patient continued to consume a small amount of food and took medications crushed with several cues to swallow. We continued with heparin drip. Abnormal Labs: Hgb 11.2, Hct 34.6, MCV 76.7, MCH 24.8, MCHC 32.3, PTT 96.2, Sodium 133, Corrected Sodium 135, Chloride 97, BUN 32, Creatinine 1.81, GFR af 37, GFR non 30, Glucose 199, Calcium 10.2, Corrected Calcium 11.2, AST 64, Albumin 2.7, Globulin 5.3, A/G Ratio 0.5. Day eight, She continued with left sided paralysis. She awakened to verbal simuli. Vitals were 96.3-67-16-100%-125/58. We discussed Portacath placement with family, due to poor venous access, and they were in agreement. Abnormal labs included: Hgb 11.2, Hct 34.8, Sodium 134, Chl 97, Bun 36, Creat 1.73, Glucose 180, Ast 61, Albumin 2.7. We continued Heparin Drip and monitored. Day nine, treatment was continued for acute right sided CVA. She awakened to verbal stimuli. She continued with left sided paralysis. Vitals were 96.9-66-15- 100%-121/70. Abnormal labs included: Hgb 11.0, Hct 34.2, Sodium 133, Chl 96, Bun 49, Creat 2.13, Glucose 155, Calcium 10.3, Ast 58, Albumin 2.8. Dr. Collier was consulted for feeding tube per family's request, due to continued poor appetite. Dr. Collier placed feeding tube and patient tolerated well. We continued treatment. Day ten, patient had no change in status. She continued with left sided paralysis. Vitals were stable. Dr. Collier started feedings to feeding tube and patient was tolerating well. She was accepted at a half-way care facility in [place], [place] after discharge. We continued treatment and monitored. Day eleven, patient was doing well with tube feedings. Vitals were stable. She continued with left sided paralysis. Labs wnl. We planned for discharge. Instructions for medications and follow up were discussed with patient and family, both voiced understanding. Patient discharged to [facility] in stable condition with EMS. - Discharge Medications Discharge Medications: Home Medication List amlodipine 10 mg PO HS 04/09/18 [History] carvedilol 12.5 mg PO BID 04/09/18 [History] hydrochlorothiazide 25 mg PO DAILY 04/09/18 [History] valsartan 320 mg PO HS 04/09/18 [History] apixaban [Eliquis] 2.5 mg FEEDING TUBE BID #60 tab 04/19/18 [Rx] ciprofloxacin HCl [Cipro] 500 mg FEEDING TUBE BID #20 tab 04/19/18 [Rx] hydrocodone-acetaminophen [[place]] 1 tab FEEDING TUBE Q6H PRN #30 tab 04/19/18 [ Rx] Prescriptions: apixaban [Eliquis] Dilip Wright ciprofloxacin HCl [Cipro] Dilip Wright hydrocodone-acetaminophen [[place]] Dilip Wright Home Medications clopidogrel [Plavix] 75 mg PO DAILY 08/24/17 ferrous sulfate 325 mg PO BID 08/24/17 insulin glargine [Lantus U-100 Insulin] 30 units SC QAM 08/24/17 spironolactone 25 mg PO DAILY 08/24/17 - Discharge Disposition Discharge Disposition: Patient is to follow up with Doctor of choice at [facility].
== END 2018-04-19 16:35 | DRG 65 ==
LOC: ICU
PROVIDERS: ADMIT Internal Medicine; ATTEND Internal Medicine
DX: R94.31 Abnormal electrocardiogram [ECG] [EKG]; E11.65 Type 2 diabetes mellitus with hyperglycemia; D50.8 Other iron deficiency anemias; R26.89 Other abnormalities of gait and mobility; B96.29 Other Escherichia coli [E. coli] as the cause of diseases classified elsewhere; E66.01 Morbid (severe) obesity due to excess calories; R41.82 Altered mental status, unspecified; I10 Essential (primary) hypertension; N30.01 Acute cystitis with hematuria; I50.9 Heart failure, unspecified; R53.1 Weakness; R13.11 Dysphagia, oral phase; I63.8 Other cerebral infarction
CPT/HCPCS: 36415; 36556; 70450; 70551; 71010; 71045; 76000; 80053; 81001; 83735; 85025; 85730; 87086; 87088; 87186; 92507; 92523; 92526; 92610; 93005; 93010; 93306; 93880; 97110; 97112; 97163; 97167; 97530; 97535; A4216; A4222; A4217; G0378; J0696; J1642; J1644; J1815; J2250; J2270; J2704; J3010; J3480; J3490; J7030; J7040; J7050; J7060; J7120